=== PATIENT | male | born 1955 | race Asian ===

== ENCOUNTER 2018-05-02 09:38 | Inpatient (IN) | payer OTHER ==
[2018-05-02 10:00] VITALS: BP 156/118; PULSE 126; TEMP 97.5; BMI 25.8
--- NOTE | 2018-05-02 10:39 | HP ---
CIWA Score - CIWA Score Nausea/Vomitin-No Nausea/No Vomiting Muscle Tremors: 4-Moderate,w/Arms Extend Anxiety: 0-No Anxiety, at Ease Agitation: 0-Normal Activity Paroxysmal Sweats: No Perspiration Orientation: 0-Oriented Tacttile Disturbances: 0-None Auditory Disturbances: 0-None Visual Disturbances: 0-None Headache: 0-None Present CIWA-Ar Total Score: 4 Admission ROS BHS - HPI Allergies/Adverse Reactions: Allergies Allergy/AdvReac Type Severity Reaction Status Date / Time No Known Allergies Allergy Verified 05/02/18 10:00 History of Present Illness: pt here requesting detox from alcohol use , reports 1 .5 bottles vodka/day , reports uses x 2 years , denies seizures, + blackouts , + tremors, + falls most recently 1 mo ago w/ scalp laceration went to [facility] . latest use last night , went to [facility] after blackout taken by EMS . rizwan 0.60 utox bzo pmhx : HTN , has not taken meds > 1 mo ago pshx :renetta tkr ( left 2011, r 2016 ) , left elbow frx 2/2 fall ORIF C-spine cage and hardware 2 years ago psych : denies tobacco : denies Exam Limitations: No Limitations - Ebola screening Have you been sick,other than usual withdrawal symptoms: No - Review of Systems Constitutional: No Symptoms Reported EENT: reports: Other (reading glasses) Respiratory: reports: No Symptoms reported Cardiac: reports: No Symptoms Reported GI: reports: No Symptoms Reported : reports: No Symptoms Reported Musculoskeletal: reports: No Symptoms Reported Integumentary: reports: Dryness, Erythema, Other (swelling in feet 2 weeks ago) Neuro: reports: Tremors, Unsteady Gait Endocrine: reports: No Symptoms Reported Psychiatric: reports: No Sypmtoms Reported, Judgement Intact, Orientated x3 Other Systems: Reviewed and Negative Patient History - Patient Medical History Hx Asthma: No Hx Chronic Obstructive Pulmonary Disease (COPD): No Hx Cardiac Disorders: No Hx Hypertension: Yes Hx Seizures: No Hx Diabetes: No Hx Gastrointestinal Disorders: No Hx Genitourinary Disorders: No Hx Sexually Transmitted Disorders: No Hx Renal Disease (ESRD): No Hx Depression: No Hx Suicide Attempt: No Hx Schizophrenia: No - Patient Surgical History Past Surgical History: Yes Hx Neurologic Surgery: No Hx Cataract Extraction: No Hx Cardiac Surgery: No Hx Lung Surgery: No Hx Breast Surgery: No Hx Breast Biopsy: No Hx Abdominal Surgery: No Hx Appendectomy: No Hx Cholecystectomy: No Hx Genitourinary Surgery: No Hx Section: No Hx Orthopedic Surgery: Yes (B/L REPLACEMENT 2017) Anesthesia Reaction: No - PPD History Previous Implant?: Yes Documented Results: Negative w/o proof Implanted On Prior R Admission?: No - Smoking Cessation Smoking history: Never smoked Have you smoked in the past 12 months: No Hx Chewing Tobacco Use: No - Substances Abused Alcohol Route: Oral Frequency: Daily Amount used: 07/25 TO 2 VODKA Age of first use: 24 Date of Last Use: 05/01/18 Admission Physical Exam BHS - Vital Signs Vital Signs: Vital Signs - 24 hr 05/02/18 09:57 Temperature 97.5 F L Pulse Rate 126 H Respiratory 18 Rate Blood Pressure 156/118 H - Physical General Appearance: Yes: Disheveled, Mild Distress, Other (poor personal hygiene ) HEENTM: Yes: Normocephalic, Normal Voice Respiratory: Yes: Chest Non-Tender, Lungs Clear, Normal Breath Sounds Neck: Yes: No masses,lesions,Nodules, Other (surgical scar right anterolateral neck) Breast: Yes: Breast Exam Deferred Cardiology: Yes: Tachycardia, Irregular, Other (referred to ER for evaluation as staff unable to obtain EKG 2/2 tremors) Abdominal: Yes: Normal Bowel Sounds, Non Tender Genitourinary: Yes: Within Normal Limits Back: Yes: Normal Inspection Musculoskeletal: Yes: Joint Stiffness, Joint swelling (right elbow deformity , decreased ROM , cannot fully extend elbow , renetta hands deformities, 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 , bilateral 2nd finger PIP deformity , enlarged, radial deviation bilateral hands , left VTh dip F contracture , renetta knees TKR scars), Other (renetta knees tkr) Extremities: Yes: Other (renetta le hyperpigmentation , dry skin , mild pretibial edema) Neurological: Yes: Fully Oriented, Alert, Motor Strength 5/5, Normal Mood/Affect Integumentary: Yes: Erythema, Other (pre-tibial hyperpigmentation, stasis dermatitis , dry skin , pretibial small areas of ulceration no d/c renetta feet sking dry , scaly , onychomycosis x 10 toes) - Diagnostic (1) Alcohol withdrawal Current Visit: Yes Status: Acute Qualifiers: Complication of substance-induced condition: with unspecified complication Qualified Code(s): F10.239 - Alcohol dependence with withdrawal, unspecified BHS Breath Alcohol Content Breath Alcohol Content: 0.060 Urine Drug Screen - Results Drug Screen Negative: No Urine Drug Screen Results: BZO-Benzodiazepines
--- NOTE | 2018-05-02 18:09 | PN ---
Teaching Attending Note Name of Resident: Mahogany Segura ATTENDING PHYSICIAN STATEMENT I saw and evaluated the patient. I reviewed the resident's note and discussed the case with the resident. I agree with the resident's findings and plan as documented with exceptions below. SUBJECTIVE: 62 yom with PMhx of ETOH abuse, HTN (non compliant with meds), drinks heavily about 1.5 bottles of vodka/day, OBJECTIVE: ASSESSMENT AND PLAN:
--- NOTE | 2018-05-03 10:50 | EKG ---
Test Reason : Blood Pressure : / mmHG Vent. Rate : 132 BPM Atrial Rate : 132 BPM P-R Int : 146 ms QRS Dur : 082 ms QT Int : 330 ms P-R-T Axes : 034 004 056 degrees QTc Int : 488 ms POOR DATA QUALITY, INTERPRETATION MAY BE ADVERSELY AFFECTED SINUS TACHYCARDIA NONSPECIFIC ST AND T WAVE ABNORMALITY ABNORMAL ECG NO PREVIOUS ECGS AVAILABLE Confirmed by COOKIE MOTTA MD ([id number] on 05/03/2018 10:49:26 AM Referred By: HUNG HUERTAS Confirmed By:COOKIE MOTTA MD
== END 2018-05-02 23:36 | disposition short-term general hospital (02) | DRG 775 ==
LOC: YASAS 09:38 → Y6N 11:53
PROC: HZ2ZZZZ Detoxification Services for Substance Abuse Treatment (ICD-10-PCS; principal; 2018-05-02)
DX: F10.230 Alcohol dependence with withdrawal, uncomplicated (principal); I10 Essential (primary) hypertension; Z91.14 Patient's other noncompliance with medication regimen; Z96.653 Presence of artificial knee joint, bilateral
CPT/HCPCS: 82962; 93005; 93010

== ENCOUNTER 2018-05-02 12:40 | Inpatient (IN) | payer OTHER ==
--- NOTE | 2018-05-02 13:13 | PDOC ---
History of Present Illness - General Chief Complaint: Tachycardia Stated Complaint: TACHYCARDIA Time Seen by Provider: 05/02/18 13:02 History Source: Patient Exam Limitations: No Limitations - History of Present Illness Initial Comments: 05/02/18 13:17 This is a 62 YOM with h/o heavy EtOH use (drinks a fifth to a utrfi-bel-d-half of liquor/day, prior withdrawal and detox 2 years ago c/b withdrawal seizures) and HTN who p/w shakes, head-to-toe body aches, generalized weakness, malaise, RHR, and high blood pressure in the setting of stopping drinking EtOH yesterday. He notes the symptoms are worsening and are similar to his prior withdrawal symptoms. He denies any difficulty balancing or hallucinations today. He notes the generalized body aches are worse in both calves than anywhere else (but the calves are equally painful both sides). He denies SI/HI, chest pain, headache, vertigo, vision change, abdominal pain, dysuria, or additional symptoms. He states he has not gotten any type of medication for withdrawal or HTN or other problems. Past History - Past Medical History Allergies/Adverse Reactions: Allergies Allergy/AdvReac Type Severity Reaction Status Date / Time No Known Allergies Allergy Verified 05/02/18 10:00 Home Medications: Ambulatory Orders NK [No Known Home Medication] 05/02/18 Asthma: No Cardiac Disorders: No COPD: No Diabetes: No GI Disorders: No Disorders: No HTN: Yes Kidney Stones: No Seizures: No - Surgical History Abdominal Surgery: No Appendectomy: No Cardiac Surgery: No Cholecystectomy: No Lung Surgery: No Neurologic Surgery: No Orthopedic Surgery: Yes (B/L REPLACEMENT 2016) - Reproductive History Testicular Surgery: No - Suicide/Smoking/Psychosocial Hx Smoking History: Never smoked Have you smoked in the past 12 months: No Hx Substance Use Treatment: Yes ([facility] 2010) Review of Systems - Review of Systems Able to Perform ROS?: Yes Constitutional: Yes: Malaise, Weakness. No: Chills, Fever, Unexplained wgt Loss HEENTM: No: Nose Congestion, Throat Pain Respiratory: No: Cough, Shortness of Breath Cardiac (ROS): Yes: Edema, Palpitations. No: Chest Pain, Lightheadedness, Syncope ABD/GI: No: Constipated, Diarrhea, Nausea, Vomiting : No: Burning, Dysuria Musculoskeletal: No: Back Pain, Neck Pain Integumentary: No: Bruising, Rash Neurological: Yes: Tremors. No: Headache, Numbness, Tingling, Weakness, Dizziness Endocrine: No: Unexplained Weight Gain, Unexplained Weight Loss *Physical Exam - Vital Signs Last Vital Signs Temp Pulse Resp BP Pulse Ox 98.9 F 134 H 18 159/119 H 98 05/02/18 12:56 05/02/18 12:56 05/02/18 12:56 05/02/18 12:56 05/02/18 12:56 Rectal temp 99.2 05/02/18 13:25 GENERAL: appears a bit uncomfortable, tremulous, nourished, A/Ox4, speaking in full sentences, answers questions appropriately, slightly slurred speech HEENT: PERRLA, EOMI, dry mucous membranes, no posterior pharyngeal erythema, no tonsillar swelling or exudates, no cervical lymphadenopathy NECK: No midline ttp, no spinal stepoff or deformity, full ROM, supple CARDIOVASCULAR: Rapid regular rate, normal S1S2, no MGR, radial and DP pulses 2 + and symmetric, capillary refill <2 seconds, extremities warm and well-perfused , trace pitting edema BLE symmetrically LUNGS/RESPIRATORY: No respiratory distress, normal and symmetric chest movements during respirations, lungs CTA bilaterally, equal breath sounds, no cyanosis, no nail clubbing GI/ABDOMEN: Normal symmetric appearance, normoactive bowel sounds, soft, no tenderness to palpation, no midline pulsatile masses, no palpated organomegaly BACK: No midline ttp or stepoff or deformity of thoracic or lumbar spine EXTREMITIES: distal pulses 2+, warm and well-perfused, trace BLE edema symmetrically with symmetric mild calf TTP SKIN: Warm and dry, lower legs overly dry and scaly with a few avulsed scales and exposed dermis, no pallor, no jaundice, no bruising NEUROLOGICAL: GCS 15, CN II-XII grossly intact, gait not tested, moving all extremities, 5/5 strength proximally and distally, no facial droop, no decreased sensation, +tremulous Heart Score/ECG Review #1 05/02/18 13:19 Sinus rhythm, rate of 132, normal axis and intervals, no ischemic ST-T changes #2 05/02/18 14:46 Sinus rhythm, rate of 127, normal axis, normal QRS, QRS is prolonged grossly and calculated by computer at 546, no PILAR ED Treatment Course - LABORATORY CBC & Chemistry Diagram: 05/02/18 13:10 05/02/18 16:34 Medical Decision Making - Medical Decision Making 05/02/18 13:12 Pt with h/o heavy alcohol use p/w Initial Vital Signs Temp Pulse Resp BP Pulse Ox 98.9 F 134 H 18 159/119 H 98 05/02/18 12:56 05/02/18 12:56 05/02/18 12:56 05/02/18 12:56 05/02/18 12:56 Exam: As noted in Physical Exam section. DDX IBNLT: intoxication, withdrawal (w/wo seizures), DT, hepatic encephalopathy , alcoholic cardiomyopathy, ICH, UGIB (can cause AMS), LGIB, SBP, metabolic derangement, coingestion, hepatorenal syndrome, hepatopulmonary syndrome, Wernickes encephalopathy, Korsakoff syndrome, trauma, etc. W/U ordered: EKG CXR BLE Duplex Labs as noted below TX ordered: Banana Bag IVF Librium 50 mg Ativan 1 mg IVPUSH 05/02/18 13:49 Placed US guided PIV LAC, 20g. EKG: Reviewed; results as noted in ECG Review section. CXR: No acute changes; large heart, unfolded aorta. Vital Signs Temperature 98.9 F 05/02/18 12:56 Pulse Rate 124 H 05/02/18 14:41 Respiratory Rate 18 05/02/18 14:41 Blood Pressure 107/83 05/02/18 14:32 O2 Sat by Pulse Oximetry (%) 96 05/02/18 14:41 05/02/18 14:43 Patient now persistently in the 180s HR. Repeating EKG now. 05/02/18 14:47 Rhythm strip printed from telemetry tracing at this time. At 14:47 irregular sinus rhythm recorded with rate averaging 150. At 14:48 patient's rhythm turns regular, rate about 180. Difficult to tell but this does still appear sinus rhythm, p buried in QRS. We are diligently watching for e/o SVT which we do not see at this time. Laboratory Tests 05/02/18 05/02/18 05/02/18 13:10 13:10 13:17 WBC 7.3 RBC 4.09 Hgb 12.3 Hct 37.2 MCV 91.0 MCH 30.1 MCHC 33.1 RDW 17.7 H Plt Count 438 H MPV 7.7 Absolute Neuts (auto) 5.7 Neutrophils % 78.4 Lymphocytes % 11.8 Monocytes % 6.1 Eosinophils % 2.1 Basophils % 1.6 Nucleated RBC % 0 PT with INR 12.00 INR 1.02 Sodium Cancelled Potassium Cancelled Chloride Cancelled Carbon Dioxide Cancelled Anion Gap Cancelled BUN Cancelled Creatinine Cancelled Creat Clearance w eGFR Cancelled Random Glucose Cancelled Calcium Cancelled Phosphorus Cancelled Magnesium Cancelled Total Bilirubin Cancelled AST Cancelled ALT Cancelled Alkaline Phosphatase Cancelled Creatine Kinase Cancelled Troponin I Cancelled B-Natriuretic Peptide Cancelled Total Protein Cancelled Albumin Cancelled Total Amylase Lipase Cancelled Urine Color Urine Appearance Urine pH Ur Specific [place] Urine Protein Urine Glucose (UA) Urine Ketones Urine Blood Urine Nitrite Urine Bilirubin Urine Urobilinogen Ur Leukocyte Esterase Urine WBC (Auto) Urine RBC (Auto) Ur Epithelial Cells Urine Mucus 05/02/18 14:27 I have ordered 2 mg IV Push as patient's HR remains high, he is still tremulous , +tongue fasiculations. 05/02/18 05/02/18 05/02/18 15:30 15:30 15:30 WBC RBC Hgb Hct MCV MCH MCHC RDW Plt Count MPV Absolute Neuts (auto) Neutrophils % Lymphocytes % Monocytes % Eosinophils % Basophils % Nucleated RBC % PT with INR INR Sodium Cancelled Potassium Cancelled Chloride Cancelled Carbon Dioxide Cancelled Anion Gap Cancelled BUN Cancelled Creatinine Cancelled Creat Clearance w eGFR Cancelled Random Glucose Cancelled Calcium Cancelled Phosphorus Cancelled Magnesium Cancelled Total Bilirubin Cancelled AST Cancelled ALT Cancelled Alkaline Phosphatase Cancelled Creatine Kinase Cancelled Troponin I Cancelled B-Natriuretic Peptide Cancelled Total Protein Cancelled Albumin Cancelled Total Amylase Lipase Cancelled Urine Color Straw Urine Appearance Clear Urine pH 7.0 Ur Specific [place] 1.005 L Urine Protein Negative Urine Glucose (UA) Negative Urine Ketones Negative Urine Blood 1+ H Urine Nitrite Negative Urine Bilirubin Negative Urine Urobilinogen Negative Ur Leukocyte Esterase Negative Urine WBC (Auto) None Urine RBC (Auto) 1 Ur Epithelial Cells Rare Urine Mucus Rare 05/02/18 05/02/18 16:34 16:34 WBC RBC Hgb Hct MCV MCH MCHC RDW Plt Count MPV Absolute Neuts (auto) Neutrophils % Lymphocytes % Monocytes % Eosinophils % Basophils % Nucleated RBC % PT with INR INR Sodium 139 Potassium 3.5 Chloride 104 Carbon Dioxide 26 Anion Gap 9 BUN 12 Creatinine 1.0 Creat Clearance w eGFR > 60 Random Glucose 96 Calcium 7.5 L Phosphorus Magnesium 1.6 L Total Bilirubin 0.6 AST 70 H ALT 45 Alkaline Phosphatase 138 H Creatine Kinase 97 Troponin I < 0.02 B-Natriuretic Peptide Total Protein 6.7 Albumin 2.7 L Total Amylase 67 Lipase 192 Urine Color Urine Appearance Urine pH Ur Specific [place] Urine Protein Urine Glucose (UA) Urine Ketones Urine Blood Urine Nitrite Urine Bilirubin Urine Urobilinogen Ur Leukocyte Esterase Urine WBC (Auto) Urine RBC (Auto) Ur Epithelial Cells Urine Mucus On preliminary read no e/o DVT. Reassessment: Patient appears comfortable, HR 119, BP in the 120s systolic. He has no complaints and is sleeping, easily arousable, still tremulous after a total of 3 mg Ativan. 05/02/18 18:04 The Pt is unsafe for discharge at this time. They require further hospital observation, workup, and treatment. Microblog sent to [facility] for admission. Spoke with Dr. Scott, in agreement Pt to be admitted to [facility]. Decision to Admit order placed to Dr. Scott. Placed order for another 1 mg Ativan IV push. Vital Signs Temperature 98.9 F 05/02/18 12:56 Pulse Rate 92 H 05/02/18 22:35 Respiratory Rate 18 05/02/18 22:35 Blood Pressure 135/101 H 05/02/18 22:35 O2 Sat by Pulse Oximetry (%) 100 05/02/18 22:35 *DC/Admit/Observation/Transfer Diagnosis at time of Disposition: Alcohol withdrawal Qualifiers: Complication of substance-induced condition: uncomplicated Qualified Code(s): F10.230 - Alcohol dependence with withdrawal, uncomplicated - Discharge Dispostion Condition at time of disposition: Guarded Decision to Admit order: Yes - Referrals - Patient Instructions - Post Discharge Activity
[2018-05-02] MEDS ORDERED: chlordiazePOXIDE HCL 25 MG CAPSULE PO ONE (13:14)
[2018-05-02] MEDS ORDERED: chlordiazePOXIDE HCL 25 MG CAPSULE ONE (13:15)
[2018-05-02] MEDS ORDERED: SODIUM CHLORIDE 0.9% 500 ML INFUS.BAG IV ONE (13:16)
[2018-05-02] MEDS ORDERED: LORazepam 2 MG/ML SDV VIAL ONE ×3 (13:27→18:22)
--- NOTE | 2018-05-02 13:31 | PDOC ---
Attending Attestation - Resident Resident Name: Lucinda Kennedy - ED Attending Attestation I have performed the following: I have examined & evaluated the patient, The case was reviewed & discussed with the resident, I agree w/resident's findings & plan, Exceptions are as noted - HPI HPI: 05/02/18 13:26 Mr Rajput is a 62 yo M with a h/o daily and heavy EtOH use (prior withdrawal and detox 2 years ago c/b withdrawal seizures) and HTN who p/w tachycardia and tremulousness s/p discontinuing ETOH use yesterday No hallucinations. (+) generalized body aches (+) bilateral calf pain He denies chest pain, headache, vertigo, vision change, abdominal pain, dysuria , or additional symptoms. - Physicial Exam PE: 05/02/18 13:29 GENERAL: The patient is in no acute distress. HEAD: Normal with no signs of trauma. EYES: PERRLA, EOMI, sclera anicteric, conjunctiva clear. ENT: Ears normal, nares patent, oropharynx clear without exudates. Moist mucous membranes. Tongue fasciculations NECK: Normal range of motion, supple LUNGS: Breath sounds equal, clear to auscultation bilaterally. HEART: Tachycardiac, no murmur ABDOMEN: Soft, nontender EXTREMITIES: Normal range of motion, no edema. (+) tremulous NEUROLOGICAL: Cranial nerves II through XII grossly intact. Normal speech. No focal neurological deficits. MUSCULOSKELETAL: no deformities SKIN: Warm, Dry, normal turgor, no rashes or lesions noted. - Critical Care Time Total Critical Care Time: 60 Critical Care Statement: The care of this patient involved high complexity decision making to prevent further life threatening deterioration of the patient 's condition and/or to evaluate & treat vital organ system(s) failure or risk of failure. - Medical Decision Making 05/02/18 13:31 Alcohol withdrawal Will do labs RKG IVF IV Ativan and Librium 50mg po 05/02/18 16:16 Laboratory Tests 05/02/18 13:10 WBC 7.3 Hgb 12.3 Hct 37.2 Plt Count 438 H Laboratory Tests 05/02/18 15:30 Creatine Kinase 113 Troponin I < 0.02 B-Natriuretic Peptide 403.8 H Lipase 217 05/02/18 16:25 Chemistries again hemolyzed perinatal technician states that the labs are moderately hemolyzed (K is 4.0, AST is elevated) Phlebotomy called to do labs HR goes as high as 200 Given Banana bag Give supplemental Mg 05/02/18 16:28 Labs resulted Pt still tachycardiac and tremulous More ativan given Pt remains on client service representative Clinical Impression: alcohol withdrawal, initial presentation 05/05/18 20:28 Discharge Disposition - Diagnosis Alcohol withdrawal Qualifiers: Complication of substance-induced condition: uncomplicated Qualified Code(s): F10.230 - Alcohol dependence with withdrawal, uncomplicated - Discharge Dispostion Condition at time of disposition: Improved Decision to Admit order: Yes - Referrals - Patient Instructions - Post Discharge Activity
[2018-05-02] MEDS ORDERED: FOLIC ACID INJECTION - 1 MG, THIAMINE HCL 100 MG, MULTIVIT INJECTION ADULT 10 ML in SOD... IVPB ONE (13:50)
[2018-05-02 14:06] LABS: BASO % 1.6 % (0-2.0); EOS % 2.1 % (0-4.5); HEMATOCRIT 37.2 % (35.4-49); HEMOGLOBIN 12.3 GM/dL (11.7-16.9); LYMPH % 11.8 % (8-40); MCH 30.1 pg (25.7-33.7); MCHC 33.1 g/dl (32.0-35.9); MEAN PLT VOLUME 7.7 fl (7.5-11.1); MONO % 6.1 % (3.8-10.2); NEUT % 78.4 % (42.8-82.8); PLATELET COUNT 438 K/MM3 (134-434); RBC 4.09 M/mm3 (4.00-5.60); RDW 17.7 % (11.9-15.9); WHITE BLOOD COUNT 7.3 K/mm3 (4.0-10.0)
[2018-05-02 14:23] LABS: INR 1.02 (0.83-1.09)
[2018-05-02 16:19] LABS: URINE APPEARANCE CLEAR; URINE BILIRUBIN NEGATIVE (<2.0 mg/dL); URINE COLOR STRAW; URINE GLUCOSE (UA) NEGATIVE (NEGATIVE); URINE KETONE NEGATIVE (NEGATIVE); URINE LEUK ESTERASE NEGATIVE (NEGATIVE); URINE NITRITE NEGATIVE (NEGATIVE); URINE PROTEIN NEGATIVE (NEGATIVE); URINE UROBILINOGEN NEGATIVE mg/dL (0.2-1.0)
[2018-05-02 16:31] LABS: EPI CELLS RARE /HPF (FEW); URINE MUCUS RARE
[2018-05-02 17:15] LABS: ALBUMIN 2.7 g/dl (3.4-5.0); ALK PHOS 138 U/L (45-117); AMYLASE 67 U/L (25-115); ANION GAP 9 MMOL/L (8-16); BILIRUBIN,TOTAL 0.6 mg/dL (0.2-1); BLOOD UREA NITROGEN 12 mg/dL (7-18); CALCIUM 7.5 mg/dL (8.5-10.1); CHLORIDE 104 mmol/L (98-107); CO2 26 mmol/L (21-32); GLUCOSE,RANDOM 96 mg/dL (74-106); LIPASE 192 U/L (73-393); MAGNESIUM 1.6 mg/dL (1.8-2.4); POTASSIUM 3.5 mmol/L (3.5-5.1); SGOT/AST 70 U/L (15-37); SGPT/ALT 45 U/L (13-61); SODIUM 139 mmol/L (136-145); TOT PROT 6.7 g/dl (6.4-8.2)
[2018-05-02] MEDS ORDERED: MAGNESIUM SULF 50% (8.12 MEQ/2 ML-1 GM VIAL) IVPB ONE ×2 (17:45→19:16)
[2018-05-02] MEDS ORDERED: MAGNESIUM SULF 50% (8.12 MEQ/2 ML-1 GM VIAL) ONE (17:47)
[2018-05-02] MEDS ORDERED: MAGNESIUM 1GM/D5W - 1 GM/100 ML IVPB IVPB ONE ×2 (18:12→19:30)
--- NOTE | 2018-05-02 18:45 | PN ---
Teaching Attending Note Name of Resident: Mahogany Segura ATTENDING PHYSICIAN STATEMENT I saw and evaluated the patient. I reviewed the resident's note and discussed the case with the resident. I agree with the resident's findings and plan as documented with exceptions below. SUBJECTIVE: 62 yom with PMHx of ETOH abuse, drinks 1.5 Bottles/day, HTN non compliant with meds, prior admissions for ETOH withdrawal (reportedly at [facility] for a few weeks for alcohol withdrawal a month ago, when was on 'drips), possible ETOH withdrawal seizures, yesterday had 1.5 Bottles of vodka, after which lost conscious and fell, was taken to [facility], after reportedly neg w/u including CT head, sent to [facility], was noted tachycardic/hypertensive, sent to ED. patient reported palpitations, tremors, was noted HR 170s in the ED (?SVT) and hypertensive that improved with IV ativan. Currently comfortably, falling back to sleep, reports some palpitations, but denies any chest pain, dyspnea, dizziness, nausea, vomiting, abdominal pain, headache, chest pressure or new concerns. 12 point ROS done, limited but given above. OBJECTIVE: Vital Signs Period Temp Pulse Resp BP Sys/Killian Pulse Ox Last 24 Hr 98.9 F 124-134 18-18 107-159/83-119 96-98 Intake & Output 04/29/18 04/30/18 05/01/18 05/02/18 23:59 23:59 23:59 23:59 Weight 163 lb GENERAL: Sleeping but arousable, appropriate in conversation when woken up HEAD: multiple prior old scars and hyperpigmentation EYES: Pupils equal, round and reactive to light, extraocular movements intact, sclera anicteric, conjunctiva clear. No lid lag. EARS, NOSE, THROAT: poor dentition, dry mukcous membrane NECK: soft, supple, no JVD LUNGS: Breath sounds equal, clear to auscultation bilaterally. No wheezes, and no crackles. No accessory muscle use. HEART: S1s2 regular tachycardic. ABDOMEN: Soft, nontender, not distended, normoactive bowel sounds, no guarding, no rebound, no masses. MUSCULOSKELETAL: Normal range of motion at all joints. No bony deformities or tenderness. No CVA tenderness. UPPER EXTREMITIES: 2+ pulses, warm, well-perfused. No cyanosis. No clubbing. No peripheral edema. LOWER EXTREMITIES: bilateral lower extremity skin pigmentation, flaking, multiple superficial ulceration and scabs, positive DP pulses NEUROLOGICAL: Arousable, but falls back to sleep, moves all extremities freely , mild tremors, no focal deficit but limited exam as patient keeps falling back to sleep PSYCHIATRIC: co-operative but keeps falling back to sleep SKIN: Warm, dry, normal turgor, no rashes or lesions noted, normal capillary refill. Home Medications Medication Instructions Recorded NK [No Known Home Medication] 05/02/18 Active Medications Heparin Sodium (Porcine) (Heparin -) 5,000 unit SQ ONCE ONE Stop: 05/02/18 19:01 Folic Acid 1 mg/ Thiamine HCl 100 mg/ Multivitamins/Minerals 10 ml/ Sodium Chloride 1,000 mls @ 125 mls/hr IVPB ONCE ONE Stop: 05/02/18 21:49 Last Admin: 05/02/18 15:01 Dose: 125 mls/hr Lorazepam (Ativan Injection -) 1 mg IVPUSH Q2H PRN PRN Reason: WITHDRAWAL(CONT SUBST) Laboratory Results - last 24 hr 05/02/18 05/02/18 05/02/18 13:10 13:10 13:17 WBC 7.3 RBC 4.09 Hgb 12.3 Hct 37.2 MCV 91.0 MCH 30.1 MCHC 33.1 RDW 17.7 H Plt Count 438 H MPV 7.7 Absolute Neuts (auto) 5.7 Neutrophils % 78.4 Lymphocytes % 11.8 Monocytes % 6.1 Eosinophils % 2.1 Basophils % 1.6 Nucleated RBC % 0 PT with INR 12.00 INR 1.02 Sodium Cancelled Potassium Cancelled Chloride Cancelled Carbon Dioxide Cancelled Anion Gap Cancelled BUN Cancelled Creatinine Cancelled Creat Clearance w eGFR Cancelled Random Glucose Cancelled Calcium Cancelled Phosphorus Cancelled Magnesium Cancelled Total Bilirubin Cancelled AST Cancelled ALT Cancelled Alkaline Phosphatase Cancelled Creatine Kinase Cancelled Troponin I Cancelled B-Natriuretic Peptide Cancelled Total Protein Cancelled Albumin Cancelled Total Amylase Lipase Cancelled Urine Color Urine Appearance Urine pH Ur Specific [place] Urine Protein Urine Glucose (UA) Urine Ketones Urine Blood Urine Nitrite Urine Bilirubin Urine Urobilinogen Ur Leukocyte Esterase Urine WBC (Auto) Urine RBC (Auto) Ur Epithelial Cells Urine Mucus 05/02/18 05/02/18 05/02/18 15:30 15:30 15:30 WBC RBC Hgb Hct MCV MCH MCHC RDW Plt Count MPV Absolute Neuts (auto) Neutrophils % Lymphocytes % Monocytes % Eosinophils % Basophils % Nucleated RBC % PT with INR INR Sodium Cancelled Potassium Cancelled Chloride Cancelled Carbon Dioxide Cancelled Anion Gap Cancelled BUN Cancelled Creatinine Cancelled Creat Clearance w eGFR Cancelled Random Glucose Cancelled Calcium Cancelled Phosphorus Cancelled Magnesium Cancelled Total Bilirubin Cancelled AST Cancelled ALT Cancelled Alkaline Phosphatase Cancelled Creatine Kinase Cancelled Troponin I Cancelled B-Natriuretic Peptide Cancelled Total Protein Cancelled Albumin Cancelled Total Amylase Lipase Cancelled Urine Color Straw Urine Appearance Clear Urine pH 7.0 Ur Specific [place] 1.005 L Urine Protein Negative Urine Glucose (UA) Negative Urine Ketones Negative Urine Blood 1+ H Urine Nitrite Negative Urine Bilirubin Negative Urine Urobilinogen Negative Ur Leukocyte Esterase Negative Urine WBC (Auto) None Urine RBC (Auto) 1 Ur Epithelial Cells Rare Urine Mucus Rare 05/02/18 05/02/18 16:34 16:34 WBC RBC Hgb Hct MCV MCH MCHC RDW Plt Count MPV Absolute Neuts (auto) Neutrophils % Lymphocytes % Monocytes % Eosinophils % Basophils % Nucleated RBC % PT with INR INR Sodium 139 Potassium 3.5 Chloride 104 Carbon Dioxide 26 Anion Gap 9 BUN 12 Creatinine 1.0 Creat Clearance w eGFR > 60 Random Glucose 96 Calcium 7.5 L Phosphorus Magnesium 1.6 L Total Bilirubin 0.6 AST 70 H ALT 45 Alkaline Phosphatase 138 H Creatine Kinase 97 Troponin I < 0.02 B-Natriuretic Peptide Total Protein 6.7 Albumin 2.7 L Total Amylase 67 Lipase 192 Urine Color Urine Appearance Urine pH Ur Specific [place] Urine Protein Urine Glucose (UA) Urine Ketones Urine Blood Urine Nitrite Urine Bilirubin Urine Urobilinogen Ur Leukocyte Esterase Urine WBC (Auto) Urine RBC (Auto) Ur Epithelial Cells Urine Mucus LE duplex results pending EKG Sinus tach 120s-130s Rhythm strip ASSESSMENT AND PLAN: 62 yomw ith heavy etoh use, HTN, admitted with active alcohol withdrawal, transaminitis, hypomagnesemia -Active alcohol withdrawal -Transaminitis, suspect alcohol related -Hypomagnesemia -Tachycardia, ?SVT (Few P waves on rhythm strip) -LE chronic edema with ulceration/scabs Plan: ativan 1 mg IV q2h prn, seizure precautions. Serial exams. High risk for DTs and withdrawal seizures given history, hold off. HR/BP improved with ativan. Rate controlling agents based on clinical course. Trend LFTs. Replete mg Folate/thiamine IV. Alcohol cessation counseling. Dispo back to [facility] when improved. Plan discussed with patient in detail, all questions answered. Admit to telemetry. Total admit time 65 min.
[2018-05-02] MEDS ORDERED: LORazepam 2 MG/ML SDV VIAL IVPUSH PRN ×3 (18:50→19:17)
[2018-05-02] MEDS ORDERED: HEPARIN NA (PORCINE) 5,000 UNITS/ML 1ML VIAL SQ ONE (19:00)
[2018-05-02] MEDS ORDERED: HEPARIN NA (PORCINE) 5,000 UNITS/ML 1ML VIAL ONE (19:08)
[2018-05-02] MEDS ORDERED: DEXTROSE 5%-NORMAL SALINE 1,000 ML IV SCH (19:15)
[2018-05-02] MEDS ORDERED: D5-NS + 20 MEQ KCL - 20 MEQ/1,000 ML INFUS.BAG IV SCH (19:30)
--- NOTE | 2018-05-02 19:38 | HP ---
CHIEF COMPLAINT:shaking, palpitations PCP: HISTORY OF PRESENT ILLNESS: Patient is a 62 year old male with past medical history of EtOH abuse ( recurrent admissions at [facility] for withdrawal and detox, hx of withdrawal seizures), HTN and gout, was brought in from [facility] due to shaking, generalized body aches and weakness, and heart racing for a few days. Patient's last drink was last night where he consumed 1 and a half bottles of vodka and passed out. As per patient, he was brought to [facility], where a head CT was done, reportedly to be negative, and he was given Librium. He was then discharged to [facility] for further rehab and detox today. At [facility], patient reported to have worsening of shaking, body aches, weakness and palpitations, and was brought here. Patient denies nausea, vomiting, headaches, chest pain, SOB, abdominal pain, diarrhea, constipation, or urinary symptoms. ER course was notable for: (1)Ativan 4mg given, Librium 50mg PO (2)EKG - sinus tachycardia (3)Banana bag, Mg sulfate 1gm IV Recent Travel: denies any recent travel PAST MEDICAL HISTORY: Ethanol abuse HTN Gout PAST SURGICAL HISTORY: B/l knee replacement ?Spinal surgery Social History: Smoking:denies smoking Alcohol:drinks 1 to 1 1/2 bottles of vodka almost everyday Drugs: denies lives with sister, works as a welder operator Family History: Allergies No Known Allergies Allergy (Verified 05/02/18 10:00) HOME MEDICATIONS: Home Medications Medication Instructions Recorded NK [No Known Home Medication] 05/02/18 REVIEW OF SYSTEMS CONSTITUTIONAL: shaking Absent: fever, chills, diaphoresis, generalized weakness, malaise, loss of appetite, weight change HEENT: Absent: rhinorrhea, nasal congestion, throat pain, throat swelling, difficulty swallowing, mouth swelling, ear pain, eye pain, visual changes CARDIOVASCULAR: palpitations Absent: chest pain, syncope,irregular heart rate, lightheadedness, peripheral edema RESPIRATORY: Absent: cough, shortness of breath, dyspnea with exertion, orthopnea, wheezing, stridor, hemoptysis GASTROINTESTINAL: Absent: abdominal pain, abdominal distension, nausea, vomiting, diarrhea, constipation, melena, hematochezia GENITOURINARY: Absent: dysuria, frequency, urgency, hesitancy, hematuria, flank pain, genital pain MUSCULOSKELETAL: Absent: myalgia, arthralgia, joint swelling, back pain, neck pain SKIN: Absent: rash, itching, pallor HEMATOLOGIC/IMMUNOLOGIC: Absent: easy bleeding, easy bruising, lymphadenopathy, frequent infections ENDOCRINE: Absent: unexplained weight gain, unexplained weight loss, heat intolerance, cold intolerance NEUROLOGIC: Absent: headache, focal weakness or paresthesias, dizziness, unsteady gait, seizure, mental status changes, bladder or bowel incontinence PSYCHIATRIC: Absent: anxiety, depression, suicidal or homicidal ideation, hallucinations. PHYSICAL EXAMINATION Vital Signs - 24 hr 05/02/18 05/02/18 05/02/18 12:56 14:32 14:41 Temperature 98.9 F Pulse Rate 134 H Pulse Rate [ 124 H Apical] Respiratory 18 18 Rate Blood Pressure 159/119 H Blood Pressure 107/83 [Left Arm] O2 Sat by Pulse 98 96 Oximetry (%) 05/02/18 19:20 Temperature Pulse Rate Pulse Rate [ 114 H Apical] Respiratory 18 Rate Blood Pressure Blood Pressure [Left Arm] O2 Sat by Pulse 96 Oximetry (%) GENERAL: Awake, alert, and fully oriented, in no acute distress. HEAD: patchy hypopigmented areas EYES: PERRLA, EOMI, sclera anicteric, conjunctiva clear. No lid lag. EARS, NOSE, THROAT: Ears normal, nares patent, oropharynx clear without exudates. Dry mucous membranes. NECK: Normal range of motion, supple without lymphadenopathy, JVD, or masses. LUNGS: Breath sounds equal, clear to auscultation bilaterally. HEART: Tachycardic, normal S1 and S2 without murmur, rub or gallop. ABDOMEN: Soft, nontender, not distended, normoactive bowel sounds. MUSCULOSKELETAL: Normal range of motion at all joints. No bony deformities or tenderness. No CVA tenderness. UPPER EXTREMITIES: 2+ pulses, warm, well-perfused. No cyanosis. No clubbing. No peripheral edema. LOWER EXTREMITIES: 2+ pulses, warm, well-perfused. No calf tenderness. +1 b/l pitting edema. +dry, flaky skin on both legs, with wounds and scabs NEUROLOGICAL: Cranial nerves II-XII intact. Normal speech. Gait not observed. Sensation intact, motor 5/5 PSYCHIATRIC: Cooperative. Good eye contact. Appropriate mood and affect. SKIN: Warm, dry, normal turgor, no rashes or lesions noted, normal capillary refill. Laboratory Results - last 24 hr 05/02/18 05/02/18 05/02/18 13:10 13:10 13:17 WBC 7.3 RBC 4.09 Hgb 12.3 Hct 37.2 MCV 91.0 MCH 30.1 MCHC 33.1 RDW 17.7 H Plt Count 438 H MPV 7.7 Absolute Neuts (auto) 5.7 Neutrophils % 78.4 Lymphocytes % 11.8 Monocytes % 6.1 Eosinophils % 2.1 Basophils % 1.6 Nucleated RBC % 0 PT with INR 12.00 INR 1.02 Sodium Cancelled Potassium Cancelled Chloride Cancelled Carbon Dioxide Cancelled Anion Gap Cancelled BUN Cancelled Creatinine Cancelled Creat Clearance w eGFR Cancelled Random Glucose Cancelled Calcium Cancelled Phosphorus Cancelled Magnesium Cancelled Total Bilirubin Cancelled AST Cancelled ALT Cancelled Alkaline Phosphatase Cancelled Creatine Kinase Cancelled Troponin I Cancelled B-Natriuretic Peptide Cancelled Total Protein Cancelled Albumin Cancelled Total Amylase Lipase Cancelled Urine Color Urine Appearance Urine pH Ur Specific [place] Urine Protein Urine Glucose (UA) Urine Ketones Urine Blood Urine Nitrite Urine Bilirubin Urine Urobilinogen Ur Leukocyte Esterase Urine WBC (Auto) Urine RBC (Auto) Ur Epithelial Cells Urine Mucus 05/02/18 05/02/18 05/02/18 15:30 15:30 15:30 WBC RBC Hgb Hct MCV MCH MCHC RDW Plt Count MPV Absolute Neuts (auto) Neutrophils % Lymphocytes % Monocytes % Eosinophils % Basophils % Nucleated RBC % PT with INR INR Sodium Cancelled Potassium Cancelled Chloride Cancelled Carbon Dioxide Cancelled Anion Gap Cancelled BUN Cancelled Creatinine Cancelled Creat Clearance w eGFR Cancelled Random Glucose Cancelled Calcium Cancelled Phosphorus Cancelled Magnesium Cancelled Total Bilirubin Cancelled AST Cancelled ALT Cancelled Alkaline Phosphatase Cancelled Creatine Kinase Cancelled Troponin I Cancelled B-Natriuretic Peptide Cancelled Total Protein Cancelled Albumin Cancelled Total Amylase Lipase Cancelled Urine Color Straw Urine Appearance Clear Urine pH 7.0 Ur Specific [place] 1.005 L Urine Protein Negative Urine Glucose (UA) Negative Urine Ketones Negative Urine Blood 1+ H Urine Nitrite Negative Urine Bilirubin Negative Urine Urobilinogen Negative Ur Leukocyte Esterase Negative Urine WBC (Auto) None Urine RBC (Auto) 1 Ur Epithelial Cells Rare Urine Mucus Rare 10/13/18 10/13/18 16:34 16:34 WBC RBC Hgb Hct MCV MCH MCHC RDW Plt Count MPV Absolute Neuts (auto) Neutrophils % Lymphocytes % Monocytes % Eosinophils % Basophils % Nucleated RBC % PT with INR INR Sodium 139 Potassium 3.5 Chloride 104 Carbon Dioxide 26 Anion Gap 9 BUN 12 Creatinine 1.0 Creat Clearance w eGFR > 60 Random Glucose 96 Calcium 7.5 L Phosphorus Magnesium 1.6 L Total Bilirubin 0.6 AST 70 H ALT 45 Alkaline Phosphatase 138 H Creatine Kinase 97 Troponin I < 0.02 B-Natriuretic Peptide Total Protein 6.7 Albumin 2.7 L Total Amylase 67 Lipase 192 Urine Color Urine Appearance Urine pH Ur Specific [place] Urine Protein Urine Glucose (UA) Urine Ketones Urine Blood Urine Nitrite Urine Bilirubin Urine Urobilinogen Ur Leukocyte Esterase Urine WBC (Auto) Urine RBC (Auto) Ur Epithelial Cells Urine Mucus ASSESSMENT/PLAN: Patient is a 62 year old male with past medical history of EtOH abuse ( recurrent admissions at [facility] for withdrawal and detox, hx of withdrawal seizures), HTN and gout, was brought in from [facility] due to shaking, generalized body aches and weakness, and heart racing for a few days. #Alcohol withdrawal -Previous history of withdrawal seizures -Close monitoring and seizure precautions -Ativan 2mg IV q2h PRN -Replete Mg, Folic acid -Thiamine 1000mg IVPB a1ppyat #Hypomagnesemia -Mg 1.6 -replete as necessary -Magnesium 1gm x3 given overnight -MgOx 800mg PO daily -will monitor #Hypertension -Pt not compliant, don't know what medications his taking -will reconcile medications in the AM -monitor BP #FEN -IV D5NS + 20meqKCl @100ml/hr -hypoMg, will replete -Routine bmp monitoring -Sodium controlled diet with aspiration precautions #Prophylaxis -Heparin 5000units sq tid #Disposition -admit to telemetry -Discharge back to [facility] when medically optimized. Visit type - Emergency Visit Emergency Visit: Yes ED Registration Date: 05/02/18 Care time: The patient presented to the Emergency Department on the above date and was hospitalized for further evaluation of their emergent condition. - New Patient This patient is new to me today: Yes Date on this admission: 05/03/18 - Critical Care Critical Care patient: No
[2018-05-03] MEDS ORDERED: chlordiazePOXIDE HCL 25 MG CAPSULE PO PRN (09:34)
--- NOTE | 2018-05-03 09:52 | PN ---
Physical Exam: SUBJECTIVE: Patient seen and examined, calm, appropriate, denies any anxiety, tremors, nausea, vomiting, abdominal pain or new concerns. OBJECTIVE: Vital Signs Period Temp Pulse Resp BP Sys/Killian Pulse Ox Last 24 Hr 98.9 F 92-134 16-18 107-159/83-119 96-100 GENERAL: sitting in bed in no acute distress, awake and appropriate CVS:S1S2 regular, tachycardic Chest; No rales or wheezing, decreased effort Abdomen:soft, obese, NT, no voluntary or involuntary guarding or rigidity, positive bowel sounds Extremities: no edema, minimal tremors, chronic arthritic changes Laboratory Results - last 24 hr 05/02/18 05/02/18 05/02/18 13:10 13:10 13:17 WBC 7.3 RBC 4.09 Hgb 12.3 Hct 37.2 MCV 91.0 MCH 30.1 MCHC 33.1 RDW 17.7 H Plt Count 438 H MPV 7.7 Absolute Neuts (auto) 5.7 Neutrophils % 78.4 Lymphocytes % 11.8 Monocytes % 6.1 Eosinophils % 2.1 Basophils % 1.6 Nucleated RBC % 0 PT with INR 12.00 INR 1.02 Sodium Cancelled Potassium Cancelled Chloride Cancelled Carbon Dioxide Cancelled Anion Gap Cancelled BUN Cancelled Creatinine Cancelled Creat Clearance w eGFR Cancelled Random Glucose Cancelled Calcium Cancelled Phosphorus Cancelled Magnesium Cancelled Total Bilirubin Cancelled AST Cancelled ALT Cancelled Alkaline Phosphatase Cancelled Creatine Kinase Cancelled Troponin I Cancelled B-Natriuretic Peptide Cancelled Total Protein Cancelled Albumin Cancelled Total Amylase Lipase Cancelled Urine Color Urine Appearance Urine pH Ur Specific [place] Urine Protein Urine Glucose (UA) Urine Ketones Urine Blood Urine Nitrite Urine Bilirubin Urine Urobilinogen Ur Leukocyte Esterase Urine WBC (Auto) Urine RBC (Auto) Ur Epithelial Cells Urine Mucus 05/02/18 05/02/18 05/02/18 15:30 15:30 15:30 WBC RBC Hgb Hct MCV MCH MCHC RDW Plt Count MPV Absolute Neuts (auto) Neutrophils % Lymphocytes % Monocytes % Eosinophils % Basophils % Nucleated RBC % PT with INR INR Sodium Cancelled Potassium Cancelled Chloride Cancelled Carbon Dioxide Cancelled Anion Gap Cancelled BUN Cancelled Creatinine Cancelled Creat Clearance w eGFR Cancelled Random Glucose Cancelled Calcium Cancelled Phosphorus Cancelled Magnesium Cancelled Total Bilirubin Cancelled AST Cancelled ALT Cancelled Alkaline Phosphatase Cancelled Creatine Kinase Cancelled Troponin I Cancelled B-Natriuretic Peptide Cancelled Total Protein Cancelled Albumin Cancelled Total Amylase Lipase Cancelled Urine Color Straw Urine Appearance Clear Urine pH 7.0 Ur Specific [place] 1.005 L Urine Protein Negative Urine Glucose (UA) Negative Urine Ketones Negative Urine Blood 1+ H Urine Nitrite Negative Urine Bilirubin Negative Urine Urobilinogen Negative Ur Leukocyte Esterase Negative Urine WBC (Auto) None Urine RBC (Auto) 1 Ur Epithelial Cells Rare Urine Mucus Rare 05/02/18 05/02/18 16:34 16:34 WBC RBC Hgb Hct MCV MCH MCHC RDW Plt Count MPV Absolute Neuts (auto) Neutrophils % Lymphocytes % Monocytes % Eosinophils % Basophils % Nucleated RBC % PT with INR INR Sodium 139 Potassium 3.5 Chloride 104 Carbon Dioxide 26 Anion Gap 9 BUN 12 Creatinine 1.0 Creat Clearance w eGFR > 60 Random Glucose 96 Calcium 7.5 L Phosphorus Magnesium 1.6 L Total Bilirubin 0.6 AST 70 H ALT 45 Alkaline Phosphatase 138 H Creatine Kinase 97 Troponin I < 0.02 B-Natriuretic Peptide Total Protein 6.7 Albumin 2.7 L Total Amylase 67 Lipase 192 Urine Color Urine Appearance Urine pH Ur Specific [place] Urine Protein Urine Glucose (UA) Urine Ketones Urine Blood Urine Nitrite Urine Bilirubin Urine Urobilinogen Ur Leukocyte Esterase Urine WBC (Auto) Urine RBC (Auto) Ur Epithelial Cells Urine Mucus Active Medications Generic Name Dose Route Start Last Admin Trade Name Freq PRN Reason Stop Dose Admin Chlordiazepoxide HCl 50 mg 05/03/18 11:00 Librium - PO 05/04/18 05:01 [id number] IVÁN Chlordiazepoxide HCl 25 mg 05/04/18 11:00 Librium - PO 05/05/18 05:01 [id number] IVÁN Chlordiazepoxide HCl 15 mg 05/05/18 11:00 Librium - PO 05/06/18 05:01 [id number] IVÁN Chlordiazepoxide HCl 25 mg 05/03/18 09:34 Librium - PO 05/06/18 09:33 Q4H PRN WITHDRAWAL(CONT SUBST) Chlordiazepoxide HCl 10 mg 05/06/18 11:00 Librium - PO 05/07/18 05:01 [id number] IVÁN Dextrose/Sodium Chloride 20 meq in 1,000 mls @ 100 mls/hr 05/02/18 19:30 20:20 Dextrose 5%-Normal Saline+20 Meq Kcl - IV 100 mls/hr ASDIR IVÁN Administration Lorazepam 1 mg 05/03/18 09:35 Ativan Injection - IVPUSH Q6H PRN WITHDRAWAL(CONT SUBST) Magnesium Oxide 800 mg 05/03/18 10:00 Mag-Ox - PO DAILY IVÁN Thiamine HCl 100 mg 05/03/18 10:00 Vitamin B1 Injection - IVPB 05/05/18 10:01 DAILY IVÁN ASSESSMENT/PLAN: 62 yomw ith heavy etoh use, HTN, admitted with active alcohol withdrawal, transaminitis, hypomagnesemia -Active alcohol withdrawal -Transaminitis, suspect alcohol related -Hypomagnesemia -Tachycardia, ?SVT (Few P waves on rhythm strip) -LE chronic edema with ulceration/scabs Plan: Clinically improved. taper ativan. Start librium detox protocol. Follow up labs today. Seizure/fall precautions. HR/BP improved with ativan. Drug screen at [facility] pos for benzos, otherwise neg. Will place on metoprolol 25 mg BID. Has underlying HTn, non compliant with meds. Trend LFTs. Replete lytes prn Change folate/thiamine to PO, gentle hydration for now. Alcohol cessation counseling. Dispo back to [facility] when improved. Plan discussed with patient and nursing in detail, all questions answered Visit type - Emergency Visit Emergency Visit: Yes ED Registration Date: 05/02/18 Care time: The patient presented to the Emergency Department on the above date and was hospitalized for further evaluation of their emergent condition. - New Patient This patient is new to me today: No - Critical Care Critical Care patient: No - Discharge Referral Referred to [facility] Med [facility] No
[2018-05-03 10:34] LABS: BASO % 0.3 % (0-2.0); HEMATOCRIT 37.1 % (35.4-49); HEMOGLOBIN 12.2 GM/dL (11.7-16.9); MCH 30.2 pg (25.7-33.7); MCHC 32.8 g/dl (32.0-35.9); MEAN CELL VOLUME 92.2 fl (80-96); MEAN PLT VOLUME 7.5 fl (7.5-11.1); MONO % 8.9 % (3.8-10.2); NEUT % 62.8 % (42.8-82.8); PLATELET COUNT 417 K/MM3 (134-434); RBC 4.03 M/mm3 (4.00-5.60); RDW 17.8 % (11.9-15.9)
[2018-05-03 10:52] LABS: INR 1.02 (0.83-1.09)
[2018-05-03] MEDS ORDERED: THIAMINE HCL 200 MG/2 ML VIAL ONE (10:55)
[2018-05-03] MEDS ORDERED: METOPROLOL TARTRATE 25 MG TABLET (FP) ONE (10:55)
[2018-05-03] MEDS ORDERED: MAGNESIUM OXIDE 400 MG TABLET (FP) ONE (10:55)
[2018-05-03 11:02] LABS: ALBUMIN 2.9 g/dl (3.4-5.0); ALK PHOS 151 U/L (45-117); ANION GAP 5 MMOL/L (8-16); BILIRUBIN,TOTAL 0.9 mg/dL (0.2-1); BLOOD UREA NITROGEN 9 mg/dL (7-18); CALCIUM 8.6 mg/dL (8.5-10.1); CHLORIDE 100 mmol/L (98-107); CHOLESTEROL 250 mg/dL (50-200); CO2 29 mmol/L (21-32); GLUCOSE,RANDOM 116 mg/dL (74-106); HDL CHOLESTEROL 92 mg/dL (40-60); MAGNESIUM 1.9 mg/dL (1.8-2.4); PHOSPHOROUS 2.4 mg/dL (2.5-4.9); POTASSIUM 4.1 mmol/L (3.5-5.1); SGOT/AST 45 U/L (15-37); SGPT/ALT 44 U/L (13-61); SODIUM 135 mmol/L (136-145); TOT PROT 7.3 g/dl (6.4-8.2); TRIGLYCERIDES 89 mg/dL (0-150)
[2018-05-03] MEDS: THIAMINE HCL 200 MG/2 ML VIAL IVPB SCH (11:39)
[2018-05-03] MEDS: MAGNESIUM OXIDE 400 MG TABLET (FP) PO SCH (11:39)
[2018-05-03] MEDS: METOPROLOL TARTRATE 25 MG TABLET (FP) PO SCH ×2 (11:39→22:00)
[2018-05-03 11:55] LABS: COCAINE, UR NEGATIVE ng/ml (CUTOFF=300); METHADONE, UR NEGATIVE ng/ml (CUTOFF=300); OPIATES, URI NEGATIVE ng/ml (CUTOFF=300); PHENCYCLIDINE,URINE NEGATIVE ng/ml (CUTOFF=25); URINE AMPHETAMINES NEGATIVE ng/ml (CUTOFF=500); URINE BARBITURATES NEGATIVE ng/ml (CUTOFF=200)
[2018-05-03 11:58] LABS: URINE BENZODIAZEPINES POSITIVE ng/ml (CUTOFF=200)
[2018-05-03] MEDS ORDERED: chlordiazePOXIDE HCL 25 MG CAPSULE ONE ×2 (13:01→18:40)
[2018-05-03] MEDS: chlordiazePOXIDE HCL 25 MG CAPSULE PO SCH ×2 (13:02→18:50)
[2018-05-03] MEDS: NAPH,MB-DB/K PH,MBDB POWDER PACKET PO SCH ×2 (15:25→22:30)
[2018-05-03] MEDS ORDERED: LORazepam 2 MG/ML SDV VIAL ONE ×2 (16:32→22:40)
[2018-05-03] MEDS: LORazepam 2 MG/ML SDV VIAL IVPUSH PRN ×2 (16:47→22:30)
[2018-05-03] MEDS: HEPARIN NA (PORCINE) 5,000 UNITS/ML 1ML VIAL SQ SCH (22:30)
[2018-05-04 05:57] LABS: BASO % 1.4 % (0-2.0); EOS % 7.2 % (0-4.5); HEMATOCRIT 31.9 % (35.4-49); HEMOGLOBIN 10.4 GM/dL (11.7-16.9); LYMPH % 14.9 % (8-40); MCH 29.5 pg (25.7-33.7); MCHC 32.6 g/dl (32.0-35.9); MEAN CELL VOLUME 90.7 fl (80-96); MEAN PLT VOLUME 7.6 fl (7.5-11.1); MONO % 7.5 % (3.8-10.2); PLATELET COUNT 366 K/MM3 (134-434); RBC 3.52 M/mm3 (4.00-5.60); WHITE BLOOD COUNT 6.9 K/mm3 (4.0-10.0)
[2018-05-04 06:11] LABS: INR 1.04 (0.83-1.09); PROTHROMBIN TIME (PATIENT) 12.3 SEC (9.7-13.0)
[2018-05-04 06:20] LABS: ALBUMIN 2.5 g/dl (3.4-5.0); ALK PHOS 125 U/L (45-117); ANION GAP 5 MMOL/L (8-16); BILIRUBIN,TOTAL 0.7 mg/dL (0.2-1); BLOOD UREA NITROGEN 11 mg/dL (7-18); CALCIUM 8.3 mg/dL (8.5-10.1); CHLORIDE 103 mmol/L (98-107); CO2 28 mmol/L (21-32); CREATININE 1.2 mg/dL (0.55-1.3); GLUCOSE,RANDOM 222 mg/dL (74-106); MAGNESIUM 1.8 mg/dL (1.8-2.4); PHOSPHOROUS 2.8 mg/dL (2.5-4.9); POTASSIUM 4.2 mmol/L (3.5-5.1); SGOT/AST 25 U/L (15-37); SGPT/ALT 32 U/L (13-61); SODIUM 136 mmol/L (136-145); TOT PROT 6.3 g/dl (6.4-8.2)
[2018-05-04] MEDS ORDERED: NAPH,MB-DB/K PH,MBDB POWDER PACKET PO ONE (07:14)
[2018-05-04] MEDS: chlordiazePOXIDE HCL 25 MG CAPSULE PO SCH ×4 (07:32→23:17)
--- NOTE | 2018-05-04 09:05 | PN ---
Teaching Attending Note Name of Resident: Mahogany Segura ATTENDING PHYSICIAN STATEMENT I saw and evaluated the patient. I reviewed the resident's note and discussed the case with the resident. I agree with the resident's findings and plan as documented with exceptions below. SUBJECTIVE: patient sen and examined. felt palpitations earlier, now resolved, tolerating diet well, denies anxiety, dizziness or new concerns. OBJECTIVE: Vital Signs Period Temp Pulse Resp BP Sys/Killian Pulse Ox Last 24 Hr 98.2 F-98.7 F 87-114 15-20 103-150/59-90 97-100 Intake & Output 05/01/18 05/02/18 05/03/18 05/04/18 23:59 23:59 23:59 23:59 Weight 163 lb general; sitting in bed in no acute distress CVS: S1S2 regular, tachycardic Chest: CTAB, no rales or wheezing Abdomen: soft, obese, NT extremities: superficial ulcer on lower escamilla at site of prior scab, unchanged chronic findings Active Medications Chlordiazepoxide HCl (Librium -) 25 mg PO [id number] [facility] Stop: 05/05/18 05:01 Chlordiazepoxide HCl (Librium -) 15 mg PO [id number] IVÁN Stop: 05/06/18 05:01 Chlordiazepoxide HCl (Librium -) 25 mg PO Q4H PRN PRN Reason: WITHDRAWAL(CONT SUBST) Stop: 05/06/18 09:33 Chlordiazepoxide HCl (Librium -) 10 mg PO [id number] IVÁN Stop: 05/07/18 05:01 Heparin Sodium (Porcine) (Heparin -) 5,000 unit SQ TID [facility] Last Admin: 05/03/18 22:30 Dose: 5,000 unit Sodium Chloride (Normal Saline -) 1,000 mls @ 75 mls/hr IV ASDIR IVÁN Lorazepam (Ativan Injection -) 1 mg IVPUSH Q6H PRN PRN Reason: WITHDRAWAL(CONT SUBST) Last Admin: 05/03/18 22:30 Dose: 1 mg Magnesium Oxide (Mag-Ox -) 800 mg PO DAILY [facility] Last Admin: 05/03/18 11:39 Dose: 800 mg Metoprolol Tartrate (Lopressor -) 25 mg PO BID [facility] Last Admin: 05/03/18 22:00 Dose: Not Given Thiamine HCl (Vitamin B1 Injection -) 100 mg IVPB DAILY IVÁN Stop: 05/05/18 10:01 Last Admin: 05/03/18 11:39 Dose: 100 mg Laboratory Results - last 24 hr 05/03/18 05/03/18 05/03/18 10:25 10:25 10:25 WBC 5.0 RBC 4.03 Hgb 12.2 Hct 37.1 MCV 92.2 MCH 30.2 MCHC 32.8 RDW 17.8 H Plt Count 417 MPV 7.5 Absolute Neuts (auto) 3.1 Neutrophils % 62.8 Lymphocytes % 22.0 D Monocytes % 8.9 Eosinophils % 6.0 H D Basophils % 0.3 Nucleated RBC % 0 PT with INR INR Sodium 135 L Potassium 4.1 Chloride 100 Carbon Dioxide 29 Anion Gap 5 L BUN 9 Creatinine 1.0 Creat Clearance w eGFR > 60 Random Glucose 116 H Calcium 8.6 Phosphorus 2.4 L Magnesium 1.9 Total Bilirubin 0.9 Direct Bilirubin 0.4 H AST 45 H ALT 44 Alkaline Phosphatase 151 H Total Protein 7.3 Albumin 2.9 L Triglycerides 89 Cholesterol 250 H Total LDL Cholesterol 138 H HDL Cholesterol 92 H Opiates Screen Methadone Screen Barbiturate Screen Phencyclidine Screen Ur Amphetamines Screen MDMA (Ecstasy) Screen Benzodiazepines Screen Cocaine Screen U Marijuana (THC) Screen 05/03/18 05/03/18 05/04/18 10:25 11:00 05:30 WBC 6.9 RBC 3.52 L Hgb 10.4 L Hct 31.9 L MCV 90.7 MCH 29.5 MCHC 32.6 RDW 18.0 H Plt Count 366 MPV 7.6 Absolute Neuts (auto) 4.8 Neutrophils % 69.0 Lymphocytes % 14.9 D Monocytes % 7.5 Eosinophils % 7.2 H Basophils % 1.4 D Nucleated RBC % 0 PT with INR 12.00 INR 1.02 Sodium Potassium Chloride Carbon Dioxide Anion Gap BUN Creatinine Creat Clearance w eGFR Random Glucose Calcium Phosphorus Magnesium Total Bilirubin Direct Bilirubin AST ALT Alkaline Phosphatase Total Protein Albumin Triglycerides Cholesterol Total LDL Cholesterol HDL Cholesterol Opiates Screen Negative Methadone Screen Negative Barbiturate Screen Negative Phencyclidine Screen Negative Ur Amphetamines Screen Negative MDMA (Ecstasy) Screen Negative Benzodiazepines Screen Positive A* Cocaine Screen Negative U Marijuana (THC) Screen Negative 05/04/18 05/04/18 05:30 05:30 WBC RBC Hgb Hct MCV MCH MCHC RDW Plt Count MPV Absolute Neuts (auto) Neutrophils % Lymphocytes % Monocytes % Eosinophils % Basophils % Nucleated RBC % PT with INR 12.30 INR 1.04 Sodium 136 Potassium 4.2 Chloride 103 Carbon Dioxide 28 Anion Gap 5 L BUN 11 Creatinine 1.2 Creat Clearance w eGFR > 60 Random Glucose 222 H Calcium 8.3 L Phosphorus 2.8 Magnesium 1.8 Total Bilirubin 0.7 Direct Bilirubin AST 25 ALT 32 Alkaline Phosphatase 125 H Total Protein 6.3 L Albumin 2.5 L Triglycerides Cholesterol Total LDL Cholesterol HDL Cholesterol Opiates Screen Methadone Screen Barbiturate Screen Phencyclidine Screen Ur Amphetamines Screen MDMA (Ecstasy) Screen Benzodiazepines Screen Cocaine Screen U Marijuana (THC) Screen Microbiology 05/02/18 15:30 Urine - Urine Clean Catch Urine Culture - Final Contaminated: Please Repeat Telemetry: SInus tach upto 138 ASSESSMENT AND PLAN: 62 yomw ith heavy etoh use, HTN, admitted with active alcohol withdrawal, transaminitis, hypomagnesemia -Active alcohol withdrawal -Transaminitis, suspect alcohol related -Hypomagnesemia -Hyperglycemia -Tachycardia, ?SVT (Few P waves on rhythm strip) -LE chronic edema with ulceration/scabs Plan: Clinically improved. continue librium detox protocol. Seizure/fall precautions. Ongoing tachycardic. AtivanIV prn. Detox consult. Continue metoprolol 25 mg BID. Has underlying HTn, non compliant with meds. Trend LFTs. Replete lytes prn Hyperglycemia , d/c D5. A1c 6.3 Continue folate/thiamine. Alcohol cessation counseling. Dispo back to [facility] when improved,. in 24-48 hours Plan discussed with patient and nursing in detail, all questions answered
[2018-05-04] MEDS ORDERED: LORazepam 2 MG/ML SDV VIAL IVPUSH PRN (09:38)
[2018-05-04] MEDS ORDERED: ALLOPURINOL 100 MG TABLET (FP) PO SCH (10:00)
[2018-05-04] MEDS: SODIUM CHLORIDE 1,000 ML IV SCH (10:08)
--- NOTE | 2018-05-04 10:39 | EKG ---
Test Reason : Blood Pressure : / mmHG Vent. Rate : 127 BPM Atrial Rate : 127 BPM P-R Int : 152 ms QRS Dur : 074 ms QT Int : 376 ms P-R-T Axes : 025 -21 033 degrees QTc Int : 546 ms SINUS TACHYCARDIA BASELINE ARTIFACT WHEN COMPARED WITH ECG OF 02-MAY-2018 13:19, LIKELY NO SIGNIFICANT CHANGES Confirmed by JAMI MAXWELL MD ([id number]) on 05/04/2018 10:38:36 AM Referred By: Confirmed By:JAMI MAXWELL MD
--- NOTE | 2018-05-04 10:40 | EKG ---
Test Reason : Blood Pressure : / mmHG Vent. Rate : 113 BPM Atrial Rate : 113 BPM P-R Int : 126 ms QRS Dur : 092 ms QT Int : 372 ms P-R-T Axes : 022 006 066 degrees QTc Int : 510 ms SINUS TACHYCARDIA WITH PREMATURE SUPRAVENTRICULAR COMPLEXES BASELINE ARTIFACT ABNORMAL ECG NO PREVIOUS ECGS AVAILABLE Confirmed by HANS MORAN, JAMI ([id number]) on 05/04/2018 10:40:04 AM Referred By: Confirmed By:JAMI MAXWELL MD
--- NOTE | 2018-05-04 11:17 | CONSULT ---
Consult Detox [facility] Reason for Current Admission/Consult: heavy alcohol use - History History of Present Illness: Pt was first seen in [facility] on 05/02 for alcohol use disorder and for detox- but pt noted to have high BP 156/118 and MI 126 and so was transferred to [facility] for further management. Pt admits to drinking 1 1/2 bottles of Vodka/day. Pt states he does not take other substances- only alcohol. Pt states has been drinking for many years. No h /o seizures or DT's per pt. Has had admissions to [facility] for detox- but relapses because he "gets the shakes". Was seen at [facility] ER after a fall, and then presented to [facility] for admission for alcohol detox. Urine tox positive for benzo and breath alcohol test pos at [facility]. Confidential Drug Utilization Report Search Terms: stephane wakefield, 1955 Search Date: 05/04/2018 11:16:45 AM The Drug Utilization Report below displays all of the controlled substance prescriptions, if any, that your patient has filled in the last twelve months. The information displayed on this report is compiled from pharmacy submissions to the Department, and accurately reflects the information as submitted by the pharmacies. This report was requested by: Mansi Gonzalez | Reference #: [id number] There are no results for the search terms that you entered. CIWA Score - CIWA Score Nausea/Vomitin-No Nausea/No Vomiting Muscle Tremors: None Anxiety: 0-No Anxiety, at Ease Agitation: 0-Normal Activity Paroxysmal Sweats: No Perspiration Orientation: 0-Oriented Tacttile Disturbances: 0-None Auditory Disturbances: 0-None Visual Disturbances: 0-None Headache: 0-None Present CIWA-Ar Total Score: 0 Assessment Plan - Diagnosis (1) Alcohol use disorder Status: Acute - Plan Plan: Pt can go back to [facility] to complete detox when medically cleared. Pt is from [place], so would like to go to [facility] closer to home - Medication Detox Regimen/Protocol: Librium
[2018-05-04] MEDS ORDERED: chlordiazePOXIDE HCL 25 MG CAPSULE ONE ×2 (12:18→17:14)
[2018-05-04] MEDS: MAGNESIUM OXIDE 400 MG TABLET (FP) PO SCH (12:19)
[2018-05-04] MEDS: METOPROLOL TARTRATE 25 MG TABLET (FP) PO SCH ×2 (12:19→21:05)
[2018-05-04] MEDS ORDERED: THIAMINE HCL 200 MG/2 ML VIAL ONE (12:31)
[2018-05-04] MEDS ORDERED: ALLOPURINOL 100 MG TABLET (FP) ONE (12:32)
[2018-05-04] MEDS ORDERED: PANTOPRAZOLE 40 MG TABLET (FP) ONE (12:32)
[2018-05-04] MEDS: THIAMINE HCL 200 MG/2 ML VIAL IVPB SCH (12:35)
[2018-05-04] MEDS: ALLOPURINOL 100 MG TABLET (FP) PO SCH (12:35)
[2018-05-04] MEDS: PANTOPRAZOLE 40 MG TABLET (FP) PO SCH (12:35)
--- NOTE | 2018-05-04 13:02 | CONSULT ---
- Consultation REQUESTING PROVIDER: CONSULT REQUEST: We have been asked to surgically evaluate this patient for bilateral leg ulcers PCP:Altaf Scott MD HISTORY OF PRESENT ILLNESS: 62yo M h/o ETOH abuse who was admitted for alcohol withdrawal. Vascular team was contacted to evaluate his chronic b/l leg wounds. Pt states that he has a history of leg wounds but does not follow up with anyone for wound care. Pt denies history of vascular surgery. Denies fever, chills, n/v. PMHx: HTN, Gout, ETOH abuse Home Medications Medication Instructions Recorded Allopurinol [Zyloprim -] 100 mg PO DAILY tablet 05/04/18 Magnesium Oxide [Mag-Ox -] 800 mg PO DAILY tablet 05/04/18 Metoprolol Tartrate [Lopressor -] 25 mg PO BID tablet 05/04/18 Naph,Mb-Db/K pH,Mbdb [PHOS-NaK 2 packet PO BID pow 05/04/18 PACKET -] Pantoprazole Sodium [Protonix -] 40 mg PO DAILY tablet.ec 05/04/18 Allergies Allergy/AdvReac Type Severity Reaction Status Date / Time No Known Allergies Allergy Verified 05/02/18 10:00 PHYSICAL EXAM: GENERAL: Awake, alert, and fully oriented, in no acute distress. HEAD: Normal with no signs of trauma. EYES: PERRL, sclera anicteric, conjunctiva clear. NECK: Normal ROM, supple without lymphadenopathy, JVD, or masses. LUNGS: breathing comfortably, No accessory muscle use. HEART: Regular rate and rhythm. No murmurs MUSCULOSKELETAL: Normal ROM at all joints. No bony deformities or tenderness. No CVA tenderness. LOWER EXTREMITIES: 2+ pulses, warm, well-perfused. RLE shows 2 x 3 cm ulceration on anterior escamilla, b/l legs show hyperpigmentation, cracking, and skin changes NEUROLOGICAL: Normal speech, gait not observed. PSYCH: Cooperative. Good eye contact. Appropriate mood and affect. SKIN: Warm, dry, normal turgor, no rashes or lesions noted. Vital Signs Temperature 98.7 F 05/04/18 05:29 Pulse Rate 108 H 05/04/18 12:14 Respiratory Rate 17 05/04/18 12:14 Blood Pressure 126/90 05/04/18 12:14 O2 Sat by Pulse Oximetry (%) 100 05/04/18 05:29 Lab Results WBC 6.9 K/mm3 (4.0-10.0) 05/04/18 05:30 RBC 3.52 M/mm3 (4.00-5.60) L 05/04/18 05:30 Hgb 10.4 GM/dL (11.7-16.9) L 05/04/18 05:30 Hct 31.9 % (35.4-49) L 05/04/18 05:30 MCV 90.7 fl (80-96) 05/04/18 05:30 MCHC 32.6 g/dl (32.0-35.9) 05/04/18 05:30 RDW 18.0 % (11.9-15.9) H 05/04/18 05:30 Plt Count 366 K/MM3 (134-434) 05/04/18 05:30 Sodium 136 mmol/L (136-145) 05/04/18 05:30 Potassium 4.2 mmol/L (3.5-5.1) 05/04/18 05:30 Chloride 103 mmol/L (98-107) 05/04/18 05:30 Carbon Dioxide 28 mmol/L (21-32) 05/04/18 05:30 Anion Gap 5 MMOL/L (8-16) L 05/04/18 05:30 BUN 11 mg/dL (7-18) 05/04/18 05:30 Creatinine 1.2 mg/dL (0.55-1.3) 05/04/18 05:30 Random Glucose 222 mg/dL (74-106) H 05/04/18 05:30 Calcium 8.3 mg/dL (8.5-10.1) L 05/04/18 05:30 INR 1.04 (0.83-1.09) 05/04/18 05:30 Problem List - Problems (1) Leg ulcer Assessment/Plan: Plan -recommend silvadene on RLE ulcer and compression dressings -follow up with wound care clinic as an outpatient -no surgical intervention at this time. Code(s): L97.909 - NON-PRS CHRONIC ULC UNSP PRT OF UNSP LOW LEG W UNSP SEVERITY
--- NOTE | 2018-05-04 14:26 | EKG ---
Test Reason : Blood Pressure : / mmHG Vent. Rate : 124 BPM Atrial Rate : 124 BPM P-R Int : 146 ms QRS Dur : 074 ms QT Int : 344 ms P-R-T Axes : 012 -01 029 degrees QTc Int : 494 ms SINUS TACHYCARDIA WITH PREMATURE SUPRAVENTRICULAR COMPLEXES OTHERWISE NORMAL ECG WHEN COMPARED WITH ECG OF 02-MAY-2018 14:46, PREMATURE SUPRAVENTRICULAR COMPLEXES ARE NOW PRESENT Confirmed by JAMI MAXWELL MD ([id number]) on 05/04/2018 2:26:23 PM Referred By: ER ER Confirmed By:JAMI MAXWELL MD
[2018-05-04] MEDS: HEPARIN NA (PORCINE) 5,000 UNITS/ML 1ML VIAL SQ SCH ×2 (15:00→21:04)
--- NOTE | 2018-05-04 15:22 | PN ---
Physical Exam: SUBJECTIVE: Patient seen and examined at bedside this morning. No acute events overnight. Patient was tachycardic this morning, and still reports some shaking and heart racing. Patient also complains of right 2nd finger swelling and redness. Otherwise, denies nausea, vomiting, chest pain, SOB, abdominal pain, diarrhea, urinary symptoms. OBJECTIVE: Vital Signs Period Temp Pulse Resp BP Sys/Killian Pulse Ox Last 24 Hr 98.2 F-98.7 F 88-114 15-20 103-126/59-90 97-100 GENERAL: Awake, alert, and fully oriented, in no acute distress. HEAD: patchy hypopigmented areas EYES: PERRLA, EOMI, sclera anicteric, conjunctiva clear. No lid lag. EARS, NOSE, THROAT: Ears normal, nares patent, oropharynx clear without exudates. Dry mucous membranes. NECK: Normal range of motion, supple without lymphadenopathy, JVD, or masses. LUNGS: Breath sounds equal, clear to auscultation bilaterally. HEART: Tachycardic, normal S1 and S2 without murmur, rub or gallop. ABDOMEN: Soft, nontender, not distended, normoactive bowel sounds. MUSCULOSKELETAL: Normal range of motion at all joints. No bony deformities or tenderness. No CVA tenderness. UPPER EXTREMITIES: 2+ pulses, warm, well-perfused. No cyanosis. No clubbing. No peripheral edema. LOWER EXTREMITIES: 2+ pulses, warm, well-perfused. No calf tenderness. +1 b/l pitting edema. +dry, flaky skin on both legs, with wounds and scabs NEUROLOGICAL: Cranial nerves II-XII intact. Normal speech. Gait not observed. Sensation intact, motor 5/5 PSYCHIATRIC: Cooperative. Good eye contact. Appropriate mood and affect. SKIN: Warm, dry, normal turgor, no rashes or lesions noted, normal capillary refill. Laboratory Results - last 24 hr 05/04/18 05/04/18 05/04/18 05:30 05:30 05:30 WBC 6.9 RBC 3.52 L Hgb 10.4 L Hct 31.9 L MCV 90.7 MCH 29.5 MCHC 32.6 RDW 18.0 H Plt Count 366 MPV 7.6 Absolute Neuts (auto) 4.8 Neutrophils % 69.0 Lymphocytes % 14.9 D Monocytes % 7.5 Eosinophils % 7.2 H Basophils % 1.4 D Nucleated RBC % 0 PT with INR 12.30 INR 1.04 Sodium 136 Potassium 4.2 Chloride 103 Carbon Dioxide 28 Anion Gap 5 L BUN 11 Creatinine 1.2 Creat Clearance w eGFR > 60 Random Glucose 222 H Hemoglobin A1c % Calcium 8.3 L Phosphorus 2.8 Magnesium 1.8 Total Bilirubin 0.7 AST 25 ALT 32 Alkaline Phosphatase 125 H Total Protein 6.3 L Albumin 2.5 L 05/04/18 05:30 WBC RBC Hgb Hct MCV MCH MCHC RDW Plt Count MPV Absolute Neuts (auto) Neutrophils % Lymphocytes % Monocytes % Eosinophils % Basophils % Nucleated RBC % PT with INR INR Sodium Potassium Chloride Carbon Dioxide Anion Gap BUN Creatinine Creat Clearance w eGFR Random Glucose Hemoglobin A1c % 6.3 Calcium Phosphorus Magnesium Total Bilirubin AST ALT Alkaline Phosphatase Total Protein Albumin Active Medications Generic Name Dose Route Start Last Admin Trade Name Freq PRN Reason Stop Dose Admin Allopurinol 100 mg 05/04/18 10:00 05/04/18 12:35 Zyloprim - PO 100 mg DAILY IVÁN Administration Chlordiazepoxide HCl 25 mg 05/04/18 11:00 05/04/18 12:18 Librium - PO 05/05/18 05:01 25 mg [id number] IVÁN Administration Chlordiazepoxide HCl 15 mg 05/05/18 11:00 Librium - PO 05/06/18 05:01 [id number] IVÁN Chlordiazepoxide HCl 25 mg 05/03/18 09:34 Librium - PO 05/06/18 09:33 Q4H PRN WITHDRAWAL(CONT SUBST) Chlordiazepoxide HCl 10 mg 05/06/18 11:00 Librium - PO 05/07/18 05:01 [id number] IVÁN Heparin Sodium (Porcine) 5,000 unit 05/03/18 22:00 05/03/18 22:30 Heparin - SQ 5,000 unit TID IVÁN Administration Sodium Chloride 1,000 mls @ 75 mls/hr 05/04/18 09:15 05/04/18 10:08 Normal Saline - IV 75 mls/hr ASDIR IVÁN Administration Lorazepam 1 mg 05/04/18 09:38 Ativan Injection - IVPUSH Q3H PRN WITHDRAWAL(CONT SUBST) Magnesium Oxide 800 mg 05/03/18 10:00 05/04/18 12:19 Mag-Ox - PO 800 mg DAILY IVÁN Administration Metoprolol Tartrate 25 mg 05/03/18 10:00 05/04/18 12:19 Lopressor - PO 25 mg BID IVÁN Administration Pantoprazole Sodium 40 mg 05/04/18 10:00 05/04/18 12:35 Protonix - PO 40 mg DAILY IVÁN Administration Thiamine HCl 100 mg 05/03/18 10:00 05/04/18 12:35 Vitamin B1 Injection - IVPB 05/05/18 10:01 100 mg DAILY IVÁN Administration ASSESSMENT/PLAN: Patient is a 62 year old male with past medical history of EtOH abuse ( recurrent admissions at [facility] for withdrawal and detox, hx of withdrawal seizures), HTN and gout, was brought in from [facility] due to shaking, generalized body aches and weakness, and heart racing for a few days. #Alcohol withdrawal -Previous history of withdrawal seizures -Patient remained tachycardic today. -Close monitoring and seizure precautions -On Librium detox protocol -Ativan 1mg IV q3h PRN -Replete Mg, Folic acid -Thiamine 1000mg IVPB [id number] (2/3) -Detox (Dr. Gonzalez) consulted. Recommendations appreciated. #Hypomagnesemia -Mg 1.6 -replete as necessary -Magnesium 1gm x3 given overnight -MgOx 800mg PO daily -will monitor #Hypertension -Pt not compliant, don't know what medications his taking -Started Metoprolol 25mg BID -monitor BP #Hypergylcemia -Glu - 222 -A1c 6.3 -D5 discontinued. Start IV NS @75 -will continue to monitor #Hyperlipidemia #Gout -started on Allopurinol 100mg daily #FEN -IV NS @75ml/hr -hypoMg,hypophos, will replete -Routine bmp monitoring -Sodium controlled diet with aspiration precautions #Prophylaxis -Heparin 5000units sq tid #Disposition -admit to telemetry -Discharge back to [facility] when medically optimized. Visit type - Emergency Visit Emergency Visit: Yes ED Registration Date: 05/02/18 Care time: The patient presented to the Emergency Department on the above date and was hospitalized for further evaluation of their emergent condition. - New Patient This patient is new to me today: Yes Date on this admission: 05/05/18 - Critical Care Critical Care patient: No
[2018-05-04 18:39] VITALS: BMI 26.5
[2018-05-04] MEDS ORDERED: FLU VACCINE QUAD 60 MCG/0.5 ML (MDV 18-19) IM ONE (18:40)
[2018-05-04] MEDS ORDERED: PT OWN MED DRAWER 7, Y5N ONE (20:43)
[2018-05-04] MEDS: SILVER SULFADIAZINE 1% TOP CREAM 50 GM JAR TP SCH (23:12)
[2018-05-05] MEDS: chlordiazePOXIDE HCL 25 MG CAPSULE PO SCH (05:01)
[2018-05-05 06:58] LABS: BASO % 1.3 % (0-2.0); EOS % 7.1 % (0-4.5); HEMATOCRIT 30.2 % (35.4-49); HEMOGLOBIN 9.8 GM/dL (11.7-16.9); LYMPH % 22.6 % (8-40); MCH 29.7 pg (25.7-33.7); MCHC 32.6 g/dl (32.0-35.9); MEAN CELL VOLUME 91.1 fl (80-96); MEAN PLT VOLUME 7.8 fl (7.5-11.1); MONO % 6.3 % (3.8-10.2); NEUT % 62.7 % (42.8-82.8); PLATELET COUNT 379 K/MM3 (134-434); RBC 3.31 M/mm3 (4.00-5.60); RDW 17.3 % (11.9-15.9); WHITE BLOOD COUNT 7.8 K/mm3 (4.0-10.0)
[2018-05-05 07:19] LABS: ALBUMIN 2.3 g/dl (3.4-5.0); ALK PHOS 103 U/L (45-117); ANION GAP 6 MMOL/L (8-16); BILIRUBIN,TOTAL 0.5 mg/dL (0.2-1); BLOOD UREA NITROGEN 14 mg/dL (7-18); CALCIUM 8.1 mg/dL (8.5-10.1); CHLORIDE 105 mmol/L (98-107); CO2 27 mmol/L (21-32); CREATININE 1.1 mg/dL (0.55-1.3); GLUCOSE,RANDOM 113 mg/dL (74-106); MAGNESIUM 1.8 mg/dL (1.8-2.4); PHOSPHOROUS 3.3 mg/dL (2.5-4.9); POTASSIUM 4.4 mmol/L (3.5-5.1); SGOT/AST 21 U/L (15-37); SGPT/ALT 26 U/L (13-61); SODIUM 138 mmol/L (136-145)
[2018-05-05] MEDS ORDERED: MAGNESIUM OXIDE 400 MG TABLET (FP) PO ONE (07:32)
[2018-05-05] MEDS ORDERED: PT OWN MED DRAWER 7, Y5N ONE (08:14)
[2018-05-05] MEDS: MAGNESIUM OXIDE 400 MG TABLET (FP) PO SCH (09:09)
[2018-05-05] MEDS: PANTOPRAZOLE 40 MG TABLET (FP) PO SCH (09:10)
[2018-05-05] MEDS: METOPROLOL TARTRATE 25 MG TABLET (FP) PO SCH ×2 (09:10→22:12)
[2018-05-05] MEDS: THIAMINE HCL 200 MG/2 ML VIAL IVPB SCH (09:10)
[2018-05-05] MEDS: ALLOPURINOL 100 MG TABLET (FP) PO SCH (09:10)
[2018-05-05] MEDS: SODIUM CHLORIDE 1,000 ML IV SCH (09:11)
[2018-05-05] MEDS: SILVER SULFADIAZINE 1% TOP CREAM 50 GM JAR TP SCH ×2 (09:22→22:13)
[2018-05-05] MEDS: chlordiazePOXIDE 5 MG CAPSULE PO SCH ×3 (11:44→22:12)
[2018-05-05] MEDS: HEPARIN NA (PORCINE) 5,000 UNITS/ML 1ML VIAL SQ SCH ×2 (13:50→22:12)
--- NOTE | 2018-05-05 15:30 | PN ---
Teaching Attending Note Name of Resident: Mahogany Segura ATTENDING PHYSICIAN STATEMENT I saw and evaluated the patient. I reviewed the resident's note and discussed the case with the resident. I agree with the resident's findings and plan as documented. SUBJECTIVE:asymptomatic. deneis CP, SOB, fever, chills, N/V/C/D, auditory/ visual hallucinations, agitation, TREVINO denies ever smoking. no heart disease in the family or sudden unexplained deaths (mother of PA in 80's. brother in 70's) had echo in the past unsure why it was done or results. never had cardiac workup OBJECTIVE: Last Vital Signs Temp Pulse Resp BP Pulse Ox 98.7 F 88 18 133/78 97 05/05/18 13:00 05/05/18 13:00 05/05/18 13:00 05/05/18 13:00 05/05/18 09:26 General NAD CV S1 S2 RRR no murmur/rub/gallop Lungs CTA B/L no wheezing/rales/rhonchi extremities no tremors ASSESSMENT AND PLAN: 62yo M with PMH continuous ETOH dependence and HTN presented to the ER in active ETOH withdrawals and found to be tachycardic 1. Tachycardia- appears to be sinus on EKG. concern for SVT on presentation. nothing seen here. on monitor noted to have some PVC. cardiac enzymes neg x1. will check echo 2. Continuous ETOH dependence- CIWA 0. on librium protocol. on day 3 of 4. interested in inpatient rehab when completed. will call over to [facility] for pt to return to complete detox. has not done inpatient rehab in the past. counselled on cessation of ETOH use 3. Normocytic anemia- slowly trending down. never had workup in the past. denies BRBPR or melena. possible dilutional component. will repeat. would benefit from colonoscopy as outpatinet 4. Hypomagnesemia- resolved 5. Transaminitis- due to ETOH. resolved 6. HTN- controlled. cont home management 7. DVT ppx- hep sq 8/ pending echo result. can d/c back to [facility] to complete detox and start inpatient rehab
--- NOTE | 2018-05-05 15:44 | PN ---
Physical Exam: SUBJECTIVE: Patient seen and examined at bedside this morning. No acute events overnight. Patient remained hemodynamically stable. HR between 90-110. OBJECTIVE: Vital Signs Period Temp Pulse Resp BP Sys/Killian Pulse Ox Last 24 Hr 97.6 F-98.7 F 88-109 18-20 105-143/71-99 97-100 GENERAL: Awake, alert, and fully oriented, in no acute distress. HEAD: patchy hypopigmented areas EYES: PERRLA, EOMI, sclera anicteric, conjunctiva clear. No lid lag. EARS, NOSE, THROAT: Ears normal, nares patent, oropharynx clear without exudates. Dry mucous membranes. NECK: Normal range of motion, supple without lymphadenopathy, JVD, or masses. LUNGS: Breath sounds equal, clear to auscultation bilaterally. HEART: regular rate and rhythm, normal S1 and S2 without murmur, rub or gallop. ABDOMEN: Soft, nontender, not distended, normoactive bowel sounds. MUSCULOSKELETAL: Normal range of motion at all joints. No bony deformities or tenderness. No CVA tenderness. UPPER EXTREMITIES: 2+ pulses, warm, well-perfused. No cyanosis. No clubbing. No peripheral edema. LOWER EXTREMITIES: 2+ pulses, warm, well-perfused. No calf tenderness. +1 b/l pitting edema. +dry, flaky skin on both legs, with wounds and scabs NEUROLOGICAL: Cranial nerves II-XII intact. Normal speech. Gait not observed. Sensation intact, motor 5/5 PSYCHIATRIC: Cooperative. Good eye contact. Appropriate mood and affect. SKIN: Warm, dry, normal turgor, no rashes or lesions noted, normal capillary refill. Laboratory Results - last 24 hr 05/05/18 05/05/18 06:00 06:00 WBC 7.8 RBC 3.31 L Hgb 9.8 L Hct 30.2 L MCV 91.1 MCH 29.7 MCHC 32.6 RDW 17.3 H Plt Count 379 MPV 7.8 Absolute Neuts (auto) 4.9 Neutrophils % 62.7 Lymphocytes % 22.6 D Monocytes % 6.3 Eosinophils % 7.1 H Basophils % 1.3 Nucleated RBC % 0 Sodium 138 Potassium 4.4 Chloride 105 Carbon Dioxide 27 Anion Gap 6 L BUN 14 Creatinine 1.1 Creat Clearance w eGFR > 60 Random Glucose 113 H Calcium 8.1 L Phosphorus 3.3 Magnesium 1.8 Total Bilirubin 0.5 AST 21 ALT 26 Alkaline Phosphatase 103 Total Protein 6.0 L Albumin 2.3 L Active Medications Generic Name Dose Route Start Last Admin Trade Name Freq PRN Reason Stop Dose Admin Allopurinol 100 mg 05/04/18 10:00 05/05/18 09:10 Zyloprim - PO 100 mg DAILY IVÁN Administration Chlordiazepoxide HCl 15 mg 05/05/18 11:00 05/05/18 11:44 Librium - PO 05/06/18 05:01 15 mg [id number] IVÁN Administration Chlordiazepoxide HCl 25 mg 05/03/18 09:34 Librium - PO 05/06/18 09:33 Q4H PRN WITHDRAWAL(CONT SUBST) Chlordiazepoxide HCl 10 mg 05/06/18 11:00 Librium - PO 05/07/18 05:01 [id number] IVÁN Heparin Sodium (Porcine) 5,000 unit 05/03/18 22:00 05/05/18 13:50 Heparin - SQ 5,000 unit TID IVÁN Administration Lorazepam 1 mg 05/04/18 09:38 Ativan Injection - IVPUSH Q3H PRN WITHDRAWAL(CONT SUBST) Magnesium Oxide 800 mg 05/03/18 10:00 05/05/18 09:09 Mag-Ox - PO 800 mg DAILY IVÁN Administration Metoprolol Tartrate 25 mg 05/03/18 10:00 05/05/18 09:10 Lopressor - PO 25 mg BID IVÁN Administration Pantoprazole Sodium 40 mg 05/04/18 10:00 05/05/18 09:10 Protonix - PO 40 mg DAILY IVÁN Administration Silver Sulfadiazine 1 applic 05/04/18 22:00 05/05/18 09:22 Silvadene - TP 1 applic BID IVÁN Administration ASSESSMENT/PLAN: Patient is a 62 year old male with past medical history of EtOH abuse ( recurrent admissions at [facility] for withdrawal and detox, hx of withdrawal seizures), HTN and gout, was brought in from [facility] due to shaking, generalized body aches and weakness, and heart racing for a few days. #Alcohol withdrawal -Previous history of withdrawal seizures -Patient remained more stable overnight with HR 90-110 -Close monitoring and seizure precautions -On Librium detox protocol -Ativan 1mg IV q3h PRN -Replete Mg, Folic acid -Thiamine 1000mg IVPB [id number] (09/20) -Detox (Dr. Gonzalez) consulted. Recommendations appreciated. #Hypomagnesemia -Mg 1.8 -replete as necessary -MgOx 800mg PO daily -will monitor #Hypertension -Pt not compliant, don't know what medications his taking -Started Metoprolol 25mg BID -monitor BP #Hypergylcemia -Glu - 379 -A1c 6.3 -will continue to monitor #Hyperlipidemia #Gout -started on Allopurinol 100mg daily #FEN -Not on any standing fluids -hypoMg,hypophos, will replete -Routine bmp monitoring -Sodium controlled diet with aspiration precautions #Prophylaxis -Heparin 5000units sq tid #Disposition -admit to telemetry -Discharge back to [facility] when medically optimized. Visit type - Emergency Visit Emergency Visit: Yes ED Registration Date: 05/02/18 Care time: The patient presented to the Emergency Department on the above date and was hospitalized for further evaluation of their emergent condition. - New Patient This patient is new to me today: Yes Date on this admission: 05/05/18 - Critical Care Critical Care patient: No
--- NOTE | 2018-05-05 16:48 | ECHO ---
Name: JEFFREY GILL Exam:Adult Echocardiogram Study Date: 05/05/2018 01:11 PM Age: 62 yrs Reason For Study: TACHYCARDIA Height: 66 in Weight: 164 lb BSA: 1.8 m2 MMode/2D Measurements & Calculations IVSd: 0.90 cm Ao root diam: 2.6 cm LVIDd: 4.2 cm LA dimension: 3.3 cm LVIDs: 2.9 cm LVPWd: 0.83 cm EDV(Teich): 79.2 ml ESV(Teich): 31.9 ml Doppler Measurements & Calculations MV E max ziggy: 51.8 cm/sec Ao V2 max: 102.6 cm/sec MV A max ziggy: 88.4 cm/sec Ao max P.2 mmHg MV E/A: 0.59 LV V1 max P.2 mmHg MR max ziggy: 149.7 cm/sec LV V1 max: 74.7 cm/sec MR max P.0 mmHg Med Peak E' Ziggy: 6.0 cm/sec Med E/e': 8.6 Lat Peak E' Ziggy: 6.0 cm/sec Lat E/e': 8.6 Procedure The study was technically difficult with many images being suboptimal in quality. Left Ventricle The left ventricular size, thickness and function are normal. LVEF = 60-65%. E/A reversal consistent with but not diagnostic of poor LV compliance. Right Ventricle The right ventricle is normal in size and function. Atria Normal left and right atrial size and function. Mitral Valve There is mild mitral annular calcification. Tricuspid Valve The tricuspid valve is normal in structure and function. There was insufficient TR detected to calcul ate RV systolic pressure. Aortic Valve There is mild aortic sclerosis.;. Pulmonic Valve The pulmonic valve is not well visualized. Great Vessels The aortic root is normal size. Normal aortic arch, descending and ascending aorta. Pericardium/Pleura There is no pericardial effusion. Interpretation Summary The study was technically difficult with many images being suboptimal in quality. The left ventricular size, thickness and function are normal. LVEF = 60-65%. The right ventricle is normal in size and function. Normal left and right atrial size and function. There is mild aortic sclerosis.; There is mild mitral annular calcification. MD Rosana Vazquez 05/05/2018 04:47 PM
[2018-05-05] MEDS: amLODIPine BESYLATE 2.5 MG TABLET (FP) PO SCH (17:46)
[2018-05-05] MEDS ORDERED: METHOCARBAMOL 750 MG TABLET PO SCH (22:00)
[2018-05-06] MEDS: HEPARIN NA (PORCINE) 5,000 UNITS/ML 1ML VIAL SQ SCH ×4 (06:01→21:22)
[2018-05-06] MEDS: chlordiazePOXIDE 5 MG CAPSULE PO SCH (06:01)
[2018-05-06 06:48] LABS: HEMATOCRIT 30.4 % (35.4-49); HEMOGLOBIN 9.6 GM/dL (11.7-16.9); MCH 28.9 pg (25.7-33.7); MCHC 31.7 g/dl (32.0-35.9); MEAN CELL VOLUME 91.2 fl (80-96); MEAN PLT VOLUME 7.6 fl (7.5-11.1); PLATELET COUNT 382 K/MM3 (134-434); RBC 3.34 M/mm3 (4.00-5.60); RDW 17.5 % (11.9-15.9); WHITE BLOOD COUNT 8.8 K/mm3 (4.0-10.0)
[2018-05-06] MEDS ORDERED: PATIENT'S OWN MEDICATION (NON-FORMULARY) (Omeprazole [Omeprazole] 40 MG) PO SCH (10:00)
[2018-05-06] MEDS ORDERED: PANTOPRAZOLE 40 MG TABLET (FP) PO SCH (10:00)
[2018-05-06] MEDS: TAMSULOSIN HCL 0.4 MG CAP PO SCH (10:02)
[2018-05-06] MEDS: FOLIC ACID 1 MG TABLET (FP) PO SCH (10:02)
[2018-05-06] MEDS: ALLOPURINOL 100 MG TABLET (FP) PO SCH (10:02)
[2018-05-06] MEDS: amLODIPine BESYLATE 2.5 MG TABLET (FP) PO SCH (10:02)
[2018-05-06] MEDS: NIFEdipine E.R. 30 MG TABLET (FP) PO SCH (10:02)
[2018-05-06] MEDS: METOPROLOL TARTRATE 25 MG TABLET (FP) PO SCH ×2 (10:02→21:22)
[2018-05-06] MEDS: MAGNESIUM OXIDE 400 MG TABLET (FP) PO SCH (10:02)
[2018-05-06] MEDS: PANTOPRAZOLE 40 MG TABLET (FP) PO SCH (10:02)
[2018-05-06] MEDS: THIAMINE HCL 100 MG TABLET (FP) PO SCH (10:02)
[2018-05-06] MEDS: SILVER SULFADIAZINE 1% TOP CREAM 50 GM JAR TP SCH ×2 (10:11→21:22)
[2018-05-06] MEDS ORDERED: chlordiazePOXIDE 5 MG CAPSULE ONE ×3 (11:09→22:27)
[2018-05-06] MEDS: chlordiazePOXIDE HCL 10 MG CAPSULE PO SCH ×3 (11:27→22:28)
--- NOTE | 2018-05-06 12:54 | PN ---
Teaching Attending Note Name of Resident: Mahogany Segura ATTENDING PHYSICIAN STATEMENT I saw and evaluated the patient. I reviewed the resident's note and discussed the case with the resident. I agree with the resident's findings and plan as documented. SUBJECTIVE:asymptomatic. denies Cp, SOB, fever,chills, N/V/C/D, auditory/visual hallucinations OBJECTIVE: Last Vital Signs Temp Pulse Resp BP Pulse Ox 98.8 F 89 20 132/83 97 05/06/18 10:05/06/18 10:05/06/18 10:00 05/06/18 10:05/06/18 10:00 General NAD extremities no tremors ASSESSMENT AND PLAN: 62yo M with PMH continuous ETOH dependence and HTN presented to the ER in active ETOH withdrawals and found to be tachycardic 1. Tachycardia- appears to be sinus on EKG. remains sinus on monitor. Echo done with no WMA. should have stress test done as outpatient. stressed importance of following up with cardio as outpatient. 2. Continuous ETOH dependence- CIWA 0. on librium protocol. on day 4 of 4. interested in inpatient rehab when completed. will see if [facility] has beds available. has not done inpatient rehab in the past. counselled on cessation of ETOH use 3. Normocytic anemia-stable. should have screening colonoscopy done as outpatient 4. Hypomagnesemia- resolved 5. Transaminitis- due to ETOH. resolved 6. HTN- controlled. cont home management 7. DVT ppx- hep sq 8. Completing detox today. will see if detox bed is available. (none available yesterday). if not will pursue inpatient rehab tomorrow.
--- NOTE | 2018-05-06 16:24 | PN ---
Physical Exam: SUBJECTIVE: Patient seen and examined at bedside this morning. No acute events overnight. Patient has no new complaints. OBJECTIVE: Vital Signs Period Temp Pulse Resp BP Sys/Killian Pulse Ox Last 24 Hr 97.9 F-98.8 F 80-109 16-20 107-164/41-100 97-97 GENERAL: Awake, alert, and fully oriented, in no acute distress. HEAD: patchy hypopigmented areas EYES: PERRLA, EOMI, sclera anicteric, conjunctiva clear. No lid lag. EARS, NOSE, THROAT: Ears normal, nares patent, oropharynx clear without exudates. Dry mucous membranes. NECK: Normal range of motion, supple without lymphadenopathy, JVD, or masses. LUNGS: Breath sounds equal, clear to auscultation bilaterally. HEART: regular rate and rhythm, normal S1 and S2 without murmur, rub or gallop. ABDOMEN: Soft, nontender, not distended, normoactive bowel sounds. MUSCULOSKELETAL: Normal range of motion at all joints. No bony deformities or tenderness. No CVA tenderness. UPPER EXTREMITIES: 2+ pulses, warm, well-perfused. No cyanosis. No clubbing. No peripheral edema. LOWER EXTREMITIES: 2+ pulses, warm, well-perfused. No calf tenderness. +1 b/l pitting edema. +dry, flaky skin on both legs, with wounds and scabs NEUROLOGICAL: Cranial nerves II-XII intact. Normal speech. Gait not observed. Sensation intact, motor 5/5 PSYCHIATRIC: Cooperative. Good eye contact. Appropriate mood and affect. SKIN: Warm, dry, normal turgor, no rashes or lesions noted, normal capillary refill. Laboratory Results - last 24 hr 05/06/18 06:00 WBC 8.8 RBC 3.34 L Hgb 9.6 L Hct 30.4 L MCV 91.2 MCH 28.9 MCHC 31.7 L RDW 17.5 H Plt Count 382 MPV 7.6 Active Medications Generic Name Dose Route Start Last Admin Trade Name Freq PRN Reason Stop Dose Admin Allopurinol 100 mg 05/04/18 10:00 05/06/18 10:02 Zyloprim - PO 100 mg DAILY IVÁN Administration Amlodipine Besylate 2.5 mg 05/05/18 17:45 05/06/18 10:02 Norvasc - PO 2.5 mg DAILY IVÁN Administration Chlordiazepoxide HCl 10 mg 05/06/18 11:00 05/06/18 11:27 Librium - PO 05/07/18 05:01 10 mg [id number] IVÁN Administration Folic Acid 1 mg 05/06/18 10:00 05/06/18 10:02 Folic Acid - PO 1 mg DAILY IVÁN Administration Heparin Sodium (Porcine) 5,000 unit 05/03/18 22:00 05/06/18 06:01 Heparin - SQ 5,000 unit TID IVÁN Administration Lorazepam 1 mg 05/04/18 09:38 Ativan Injection - IVPUSH Q3H PRN WITHDRAWAL(CONT SUBST) Magnesium Oxide 800 mg 05/03/18 10:00 05/06/18 10:02 Mag-Ox - PO 800 mg DAILY IVÁN Administration Metoprolol Tartrate 50 mg 05/06/18 07:51 05/06/18 10:02 Lopressor - PO 50 mg BID IVÁN Administration Nifedipine 30 mg 05/06/18 10:00 05/06/18 10:02 Procardia Xl - PO 30 mg DAILY IVÁN Administration Pantoprazole Sodium 40 mg 05/04/18 10:00 05/06/18 10:02 Protonix - PO 40 mg DAILY IVÁN Administration Silver Sulfadiazine 1 applic 05/04/18 22:00 05/06/18 10:11 Silvadene - TP 1 applic BID IVÁN Administration Tamsulosin HCl 0.4 mg 05/06/18 10:00 05/06/18 10:02 Flomax - PO 0.4 mg DAILY IVÁN Administration Thiamine HCl 100 mg 05/06/18 10:00 05/06/18 10:02 Vitamin B1 - PO 100 mg DAILY IVÁN Administration ASSESSMENT/PLAN: Patient is a 62 year old male with past medical history of EtOH abuse ( recurrent admissions at [facility] for withdrawal and detox, hx of withdrawal seizures), HTN and gout, was brought in from [facility] due to shaking, generalized body aches and weakness, and heart racing for a few days. #Alcohol withdrawal -Previous history of withdrawal seizures -Patient remained more stable overnight with HR 90-110 -Close monitoring and seizure precautions -On Librium detox protocol -Ativan 1mg IV q3h PRN -Replete Mg, Folic acid -Thiamine 1000mg IVPB [id number] (09/20) -Detox (Dr. Gonzalez) consulted. Recommendations appreciated. #Hypomagnesemia -Mg 1.8 -replete as necessary -MgOx 800mg PO daily -will monitor #Hypertension -Pt not compliant, don't know what medications his taking -Increase Metoprolol 50mg BID -monitor BP #Hypergylcemia -Glu - 379 -A1c 6.3 -will continue to monitor #Hyperlipidemia #Gout -started on Allopurinol 100mg daily #FEN -Not on any standing fluids -hypoMg,hypophos, will replete -Routine bmp monitoring -Sodium controlled diet with aspiration precautions #Prophylaxis -Heparin 5000units sq tid #Disposition -admit to telemetry -Discharge back to [facility] or home tomorrow. Visit type - Emergency Visit Emergency Visit: Yes ED Registration Date: 05/02/18 Care time: The patient presented to the Emergency Department on the above date and was hospitalized for further evaluation of their emergent condition. - New Patient This patient is new to me today: Yes Date on this admission: 05/07/18 - Critical Care Critical Care patient: No
[2018-05-06] MEDS: chlordiazePOXIDE HCL 25 MG CAPSULE PO SCH (19:53)
[2018-05-07] MEDS ORDERED: chlordiazePOXIDE 5 MG CAPSULE ONE (05:26)
[2018-05-07] MEDS: chlordiazePOXIDE HCL 10 MG CAPSULE PO SCH (05:29)
[2018-05-07] MEDS: HEPARIN NA (PORCINE) 5,000 UNITS/ML 1ML VIAL SQ SCH ×3 (05:31→21:20)
[2018-05-07] MEDS: TAMSULOSIN HCL 0.4 MG CAP PO SCH (10:15)
[2018-05-07] MEDS: NIFEdipine E.R. 30 MG TABLET (FP) PO SCH (10:15)
[2018-05-07] MEDS: FOLIC ACID 1 MG TABLET (FP) PO SCH (10:15)
[2018-05-07] MEDS: ALLOPURINOL 100 MG TABLET (FP) PO SCH (10:15)
[2018-05-07] MEDS: MAGNESIUM OXIDE 400 MG TABLET (FP) PO SCH (10:15)
[2018-05-07] MEDS: THIAMINE HCL 100 MG TABLET (FP) PO SCH (10:15)
[2018-05-07] MEDS: METOPROLOL TARTRATE 25 MG TABLET (FP) PO SCH (10:15)
[2018-05-07] MEDS: SILVER SULFADIAZINE 1% TOP CREAM 50 GM JAR TP SCH ×2 (10:16→21:20)
[2018-05-07] MEDS: amLODIPine BESYLATE 2.5 MG TABLET (FP) PO SCH (10:16)
[2018-05-07] MEDS: PANTOPRAZOLE 40 MG TABLET (FP) PO SCH (10:16)
--- NOTE | 2018-05-07 12:35 | PN ---
Teaching Attending Note Name of Resident: Mahogany Segura ATTENDING PHYSICIAN STATEMENT I saw and evaluated the patient. I reviewed the resident's note and discussed the case with the resident. I agree with the resident's findings and plan as documented. SUBJECTIVE:asymptomatic. denies Cp, SOB, fever, chills, N/V/C/D OBJECTIVE: Last Vital Signs Temp Pulse Resp BP Pulse Ox 98.0 F 97 H 18 104/69 95 05/07/18 10:00 05/07/18 10:00 05/07/18 10:05/07/18 10:05/06/18 21:00 General NAD extremities no tremors ASSESSMENT AND PLAN: 62yo M with PMH continuous ETOH dependence and HTN presented to the ER in active ETOH withdrawals and found to be tachycardic 1. Tachycardia- appears to be sinus on EKG. remains sinus on monitor. Echo done with no WMA. should have stress test done as outpatient. stressed importance of following up with cardio as outpatient. 2. Continuous ETOH dependence- CIWA 0. completed librium protocol. interested in inpatient rehab when completed. [facility] [place] beds at this time. will give information for patient to call and start once completed with [facility]. 3. Normocytic anemia-stable. should have screening colonoscopy done as outpatient 4. Hypomagnesemia- resolved 5. Transaminitis- due to ETOH. resolved 6. HTN- controlled. cont home management 7. DVT ppx- hep sq 8. Only ambulated with PT 35Ft. would benefit from [facility] placement. awaiting bed availability and ins auth. d/c color television console monitor
[2018-05-07] MEDS ORDERED: ACETAMINOPHEN 325 MG TABLET (FP) PO PRN ×3 (12:38→19:05)
--- NOTE | 2018-05-07 13:58 | DS ---
Physical Exam: SUBJECTIVE: Patient seen and examined at bedside this morning. No acute events overnight. Patient has no new complaints. OBJECTIVE: Vital Signs Period Temp Pulse Resp BP Sys/Killian Pulse Ox Last 24 Hr 97.9 F-98.3 F 79-97 18-20 104-128/63-95 95 PHYSICAL EXAM ENERAL: Awake, alert, and fully oriented, in no acute distress. HEAD: patchy hypopigmented areas EYES: PERRLA, EOMI, sclera anicteric, conjunctiva clear. No lid lag. EARS, NOSE, THROAT: Ears normal, nares patent, oropharynx clear without exudates. Dry mucous membranes. NECK: Normal range of motion, supple without lymphadenopathy, JVD, or masses. LUNGS: Breath sounds equal, clear to auscultation bilaterally. HEART: regular rate and rhythm, normal S1 and S2 without murmur, rub or gallop. ABDOMEN: Soft, nontender, not distended, normoactive bowel sounds. MUSCULOSKELETAL: Normal range of motion at all joints. No bony deformities or tenderness. No CVA tenderness. UPPER EXTREMITIES: 2+ pulses, warm, well-perfused. No cyanosis. No clubbing. No peripheral edema. LOWER EXTREMITIES: 2+ pulses, warm, well-perfused. No calf tenderness. +1 b/l pitting edema. +dry, flaky skin on both legs, with wounds and scabs NEUROLOGICAL: Cranial nerves II-XII intact. Normal speech. Gait not observed. Sensation intact, motor 5/5 PSYCHIATRIC: Cooperative. Good eye contact. Appropriate mood and affect. SKIN: Warm, dry, normal turgor, no rashes or lesions noted, normal capillary refill. LABS CBC,CMP WBC 8.8 K/mm3 (4.0-10.0) 05/06/18 06:00 RBC 3.34 M/mm3 (4.00-5.60) L 05/06/18 06:00 Hgb 9.6 GM/dL (11.7-16.9) L 05/06/18 06:00 Hct 30.4 % (35.4-49) L 05/06/18 06:00 MCV 91.2 fl (80-96) 05/06/18 06:00 MCH 28.9 pg (25.7-33.7) 05/06/18 06:00 MCHC 31.7 g/dl (32.0-35.9) L 05/06/18 06:00 RDW 17.5 % (11.9-15.9) H 05/06/18 06:00 Plt Count 382 K/MM3 (134-434) 05/06/18 06:00 MPV 7.6 fl (7.5-11.1) 05/06/18 06:00 Absolute Neuts (auto) 4.9 K/mm3 (1.5-8.0) 05/05/18 06:00 Neutrophils % 62.7 % (42.8-82.8) 05/05/18 06:00 Lymphocytes % 22.6 % (8-40) D 05/05/18 06:00 Monocytes % 6.3 % (3.8-10.2) 05/05/18 06:00 Eosinophils % 7.1 % (0-4.5) H 05/05/18 06:00 Basophils % 1.3 % (0-2.0) 05/05/18 06:00 Nucleated RBC % 0 % (0-0) 05/05/18 06:00 Sodium 138 mmol/L (136-145) 05/05/18 06:00 Potassium 4.4 mmol/L (3.5-5.1) 05/05/18 06:00 Chloride 105 mmol/L (98-107) 05/05/18 06:00 Carbon Dioxide 27 mmol/L (21-32) 05/05/18 06:00 Anion Gap 6 MMOL/L (8-16) L 05/05/18 06:00 BUN 14 mg/dL (7-18) 05/05/18 06:00 Creatinine 1.1 mg/dL (0.55-1.3) 05/05/18 06:00 Creat Clearance w eGFR > 60 (>60) 05/05/18 06:00 Random Glucose 113 mg/dL (74-106) H 05/05/18 06:00 Hemoglobin A1c % 6.3 % (4.2-6.3) 05/04/18 05:30 Calcium 8.1 mg/dL (8.5-10.1) L 05/05/18 06:00 Phosphorus 3.3 mg/dL (2.5-4.9) 05/05/18 06:00 Magnesium 1.8 mg/dL (1.8-2.4) 05/05/18 06:00 Total Bilirubin 0.5 mg/dL (0.2-1) 05/05/18 06:00 Direct Bilirubin 0.4 mg/dL (0.0-0.2) H 05/03/18 10:25 AST 21 U/L (15-37) 05/05/18 06:00 ALT 26 U/L (13-61) 05/05/18 06:00 Alkaline Phosphatase 103 U/L (45-117) 05/05/18 06:00 Creatine Kinase 97 IU/L (26-308) 05/02/18 16:34 Troponin I < 0.02 ng/ml (0.00-0.05) 05/02/18 16:34 B-Natriuretic Peptide Cancelled 05/02/18 15:30 Total Protein 6.0 g/dl (6.4-8.2) L 05/05/18 06:00 Albumin 2.3 g/dl (3.4-5.0) L 05/05/18 06:00 Triglycerides 89 mg/dL (0-150) 05/03/18 10:25 Cholesterol 250 mg/dL (50-200) H 05/03/18 10:25 Total LDL Cholesterol 138 mg/dL (5-100) H 05/03/18 10:25 HDL Cholesterol 92 mg/dL (40-60) H 05/03/18 10:25 Total Amylase 67 U/L (25-115) 05/02/18 16:34 Lipase 192 U/L (73-393) 05/02/18 16:34 HOSPITAL COURSE: Date of Admission:05/02/18 Date of Discharge: 05/07/18 Patient is a 62 year old male with past medical history of EtOH abuse ( recurrent admissions at [facility] for withdrawal and detox, hx of withdrawal seizures), HTN and gout, was brought in from [facility] due to shaking, generalized body aches and weakness, and heart racing for a few days. Patient was admitted for severe alcohol withdrawal. He was placed on Librium detox protocol. He was also given Folic acid and thiamine, and electrolytes were repleted as needed. Metoprolol was increased to 50mg BID for hypertension. Patient was also started on Allopurinol 100mg daily for gout. Patient was noted to have elevated cholesterol and was started on Atorvastatin 20mg daily. Patient completed alcohol detox protocol and was discharged home. Minutes to complete discharge: 35 Discharge Summary Reason For Visit: TACHYCARDIA/ALCOHOL WITHDRAWAL SYNDROME/PROLONGED Current Active Problems Alcohol use disorder (Acute) Alcohol withdrawal (Acute) Leg ulcer (Acute) Condition: Improved - Instructions Diet, Activity, Other Instructions: You were admitted because you had severe withdrawals from drinking alcohol. You were started on Librium detox protocol. It is very important that you completely stop drinking alcohol. Drinking alcohol can lead to worsening symptoms and health problems including liver failure and even . You also have been complaining of swelling and pain of your fingers. This is probably caused by gout from drinking too much alcohol. You were started on a new medication, Allopurinol 100mg once a day. If you have any skin rash, belly pain, jaundice, flu symptoms, unusual bleeding , weakness or numbness, stop taking the medication and call your primary care doctor immediately. You were found to have elevated cholesterol on your blood. You were started on a new medication, Atorvastatin 20mg daily. You will continue taking this medication at home which you will take once every night because this causes drowsiness. If you notice any new muscle aches or pain, new belly pain, jaundice or new concerns on this medication, please stop the medication and call your doctor. Please take the following medications as instructed. 1. Multivitamins 1 tablet once daily. 2. Thiamine 100mg once tomorrow. 3. Protonix 40mg once a day. 4. Allopurinol 100mg once daily. 5. Atorvastatin 20mg once daily at bedtime. Continue your home medications as prescribed. Please follow-up with your primary care doctor in 1-2 weeks to have your blood work checked. You will need to follow-up: -CBC -BMP -Magnesium level -Phosphorus level -Uric acid level Do not drive or operate heavy machinery till seen by your doctor. Avoid being alone with children, on heights or in water. Avoid tylenol, motrin, Ibuprofen/NSAIDs or any other [id number] medications without discussion with your doctor. Call 911 or go to the ED if with severe headaches, loss of consciousness, weakness or numbness, seizures, belly pain, dark or bloody stools, or with any new concerns noted. Disposition: HOME - Home Medications Comprehensive Discharge Medication List: Ambulatory Orders Allopurinol [Zyloprim -] 100 mg PO DAILY tablet 10/15/18 Pantoprazole Sodium [Protonix -] 40 mg PO DAILY tablet.ec 05/04/18 Amlodipine Besylate [Norvasc -] 2.5 mg PO DAILY 05/05/18 Folic Acid 1 mg PO DAILY 05/05/18 Methocarbamol [Robaxin -] 750 mg PO BID 05/05/18 Nifedipine ER [Procardia XL -] 30 mg PO DAILY 05/05/18 Silver Sulfadiazine 1% Top Cr [Silvadene -] 1 applic TP BID jar 05/05/18 Tamsulosin HCl [Flomax] 0.4 mg PO DAILY 05/05/18 Thiamine HCl [B-1] 100 mg PO DAILY 05/05/18 Metoprolol Tartrate [Lopressor -] 50 mg PO BID #30 tablet 05/07/18 This patient is new to me today: Yes Date on this admission: 05/08/18 Emergency Visit: Yes ED Registration Date: 05/02/18 Care time: The patient presented to the Emergency Department on the above date and was hospitalized for further evaluation of their emergent condition. Critical Care patient: No - Discharge Referral Referred to [facility] Med P.C.: No
--- NOTE | 2018-05-07 14:17 | PN ---
[facility] Progress Note Note: Pt seen for transfer to rehab at [facility]. Pt has rheumatoid arthritis which limits his hand movements and has difficulty ambulating and with balance. Pt states he was out of bed yesterday with a rolling walker and with physical therapist assitance . He ambulated once today with the nurse. Pt has not ambulated on his own. Pt needs help with dressing and is only able to feed himself slowly. At [facility] rehab unit, pts are ambulatory and good with ADL's. In addition they need to participate in drug rehab activities. We don't think at his current level of physical functioning that he is a good candidate for the [facility] rehab floor. Please call if with questions: [phone]
[2018-05-07] MEDS: METOPROLOL TARTRATE 50 MG TABLET (FP) PO SCH (21:20)
[2018-05-07] MEDS ORDERED: HYDROCORTISONE 0.5% TOPICAL CREAM 30 GM TUBE TP ONE (21:42)
[2018-05-07] MEDS ORDERED: PT OWN MED DRAWER 7, Y5N ONE (22:43)
[2018-05-08] MEDS: HEPARIN NA (PORCINE) 5,000 UNITS/ML 1ML VIAL SQ SCH (05:30)
[2018-05-08 06:26] VITALS: TEMP 98
[2018-05-08] MEDS ORDERED: TAMSULOSIN HCL 0.4 MG CAP PO SCH (08:30)
[2018-05-08] MEDS: METOPROLOL TARTRATE 50 MG TABLET (FP) PO SCH (09:16)
[2018-05-08] MEDS: SILVER SULFADIAZINE 1% TOP CREAM 50 GM JAR TP SCH (09:17)
[2018-05-08 09:19] VITALS: BP 118/86; PULSE 84
[2018-05-08] MEDS ORDERED: ALLOPURINOL 100 MG TABLET (FP) PO SCH (10:00)
[2018-05-08] MEDS ORDERED: THIAMINE HCL 100 MG TABLET (FP) PO SCH (10:00)
[2018-05-08] MEDS ORDERED: FOLIC ACID 1 MG TABLET (FP) PO SCH (10:00)
[2018-05-08] MEDS ORDERED: MAGNESIUM OXIDE 400 MG TABLET (FP) PO SCH (10:00)
[2018-05-08] MEDS ORDERED: amLODIPine BESYLATE 2.5 MG TABLET (FP) PO SCH (10:00)
[2018-05-08] MEDS ORDERED: NIFEdipine E.R. 30 MG TABLET (FP) PO SCH (10:00)
[2018-05-08] MEDS ORDERED: PANTOPRAZOLE 40 MG TABLET (FP) PO SCH (10:00)
== END 2018-05-08 11:45 | disposition home or self-care (01) | DRG 775 ==
LOC: JER 12:40 → JERBED 17:47 → J4S 05-04 18:13
PROVIDERS: ADMIT Hospitalist; ATTEND Internal Medicine
DX: F10.230 Alcohol dependence with withdrawal, uncomplicated (principal); E83.42 Hypomagnesemia; L97.829 Non-pressure chronic ulcer of other part of left lower leg with unspecified severity; M06.9 Rheumatoid arthritis, unspecified; I10 Essential (primary) hypertension; R73.9 Hyperglycemia, unspecified; F13.10 Sedative, hypnotic or anxiolytic abuse, uncomplicated; Z91.14 Patient's other noncompliance with medication regimen; R74.0 Nonspecific elevation of levels of transaminase and lactic acid dehydrogenase [LDH]; R60.0 Localized edema; M10.9 Gout, unspecified; Z96.653 Presence of artificial knee joint, bilateral; L81.4 Other melanin hyperpigmentation; D64.9 Anemia, unspecified
CPT/HCPCS: 36415; 71045-TC-FY; 80053; 80061; 80307; 81003; 81015; 82150; 82248; 82550; 83036; 83690; 83721; 83735; 84100; 84484; 85025; 85027; 85610; 87086; 90688; 93005; 93010; 93306-TC; 93970-TC; 97116-GP; 97162-GP; 99285-25; G0008; J1644; J7030